=== PATIENT | female | born 1955 | race Caucasian/White ===

== ENCOUNTER 2022-04-20 10:37 | Inpatient (IN) | payer MEDICARE, OTHER ==
[~2022-04-20] VITALS: Ht 165.1 cm; Wt 93.0 kg
--- NOTE | 2022-04-20 17:06 | NUR ---
Pt arrived to ICU # 6 via [facility] from [facility] at 1627. Pt arrived intubated w/ 7.o ETT, 23 cm at teeth, ketamine gtt @ 2.5 mg/kg/hr and 40 mEq K+ infusing. Curtis cath in place, will attempt for a central line, only has x2 peripheral IVs currently. Propofol started and ketamine and K+ stopped.
[2022-04-20 17:49] LABS: PCO2 Arterial 40.3 mmHg (35-45); PO2 Arterial 130 mmHg (80-100); pH Blood Arterial 7.39 (7.35-7.45)
[2022-04-20 17:53] LABS: BASOPHILS ABSOLUTE AUTO 0.06 K/mm3 (0.00-0.23); BASOPHILS PERCENT AUTO 1 % (0-2); EOSINOPHILS PERCENT AUTO 5 % (0-6); Hematocrit 37.7 % (33.0-51.0); Hemoglobin 12.3 g/dL (11.5-16.0); IMMATURE GRAN ABSOLUTE AUTO 0.06 K/mm3 (0.00-0.10); IMMATURE GRAN PERCENT AUTO 1 % (0-1); LYMPHOCYTES ABSOLUTE AUTO 1.99 K/mm3 (0.84-5.20); LYMPHOCYTES PERCENT AUTO 20 % (21-46); MONOCYTES ABSOLUTE AUTO 0.94 K/mm3 (0.16-1.47); MONOCYTES PERCENT AUTO 9 % (4-13); Mean Corpuscular HGB 30.6 pg (26.0-34.0); Mean Corpuscular HGB Conc 32.6 g/dL (31.5-36.5); Mean Corpuscular Volume 94 fL (80-100); Mean Platelet Volume 9.5 fL (9.1-12.4); NEUTROPHILS ABSOLUTE AUTO 6.64 K/mm3 (1.96-9.15); NEUTROPHILS PERCENT AUTO 65 % (41-73); Platelet Count 410 K/mm3 (150-400); RDW Coefficient Variation 14.4 % (11.7-14.2); RDW Standard Deviation 49.8 fL (35.1-46.3); Red Blood Cell Count 4.02 M/mm3 (3.80-5.20); White Blood Cell Count 10.19 K/mm3 (4.00-11.30)
[2022-04-20 18:45] LABS: International Normalized Ratio 1.14; Prothrombin Time Results 11.9 Sec (9.7-11.5)
[2022-04-20 18:48] LABS: Free Thyroxine 1.45 ng/dL (0.70-1.60); Magnesium, Blood 1.7 mg/dL (1.6-2.4)
[2022-04-20 18:51] LABS: Albumin, Blood 1.7 g/dL (3.4-5.0); Albumin/Globulin Ratio 0.7 (0.8-1.8); Bilirubin, Total 0.5 mg/dL (0.1-1.0); Bun/Creatinine Ratio 6.3 (12.0-20.0); Calcium, Blood 9.4 mg/dL (8.5-10.1); Creatinine, Blood 0.8 mg/dL (0.40-1.00); Globulin, Blood 2.4 g/dL (2.2-4.0); Phosphorus, Blood 3.5 mg/dL (2.5-4.9); Potassium, Blood 3.5 mmol/L (3.5-5.5); Thyroid Stimulating Hormone 4.04 uIU/mL (0.360-4.800); Total Protein, Blood 4.1 g/dL (6.4-8.2); Triiodothyronine, Free 1.36 pg/mL (2.18-3.98)
[2022-04-20 20:27] LABS: Source, Urine Foley catheter
[2022-04-20 20:33] LABS: Appearance, Urine Cloudy (Clear); Bilirubin, Urine Neg (Neg); Blood, Urine 4+ (Neg); Color, Urine Yellow (P-Yellow); Glucose Qualitative, Urine Neg (Neg); Ketones, Urine Neg (Neg); Leukocyte Esterase, Urine 3+ (Neg); Nitrite, Urine Neg (Neg); Protein, Urine 2+ (Neg); Urobilinogen, Urine NORM (Normal)
[2022-04-20 20:49] LABS: Bacteria Many /hpf; Squamous Epithelial Cells Rare /hpf (Few)
[2022-04-20 20:50] LABS: Mucus Light (0-Heavy); White Blood Cells, Urine 25-50 /hpf (0-5)
--- NOTE | 2022-04-20 23:35 | NUR ---
ASSUMED CARE ASSUMED CARE AT 1900. PT INTUBATED AND SEDATED. AC/VC 18/400/5/40%. PROPOFOL GTT INFUSING. LEVOPHED GTT INFUSING TO KEEP MAP GREATER THAN 65. SEE FLOWSHEET FOR TITRATIONS. PT WITHDRAWS TO NOXIOUS STIMULI. MOVES LLE SPONTANEOUSLY. DOES NOT OPEN EYES. GRIMACES WITH ORAL CARE. UNEQUAL PUPILS. R UNRESPONSIVE. SEE SHIFT ASSESSMENT FOR FULL ASSESSMENT. NGT CLAMPED. ROSSI CHANGED AND UA SENT, PATENT AND DRAINING TO GRAVITY. CALL MADE TO DAUGHTER "ARMAND" TO GET BLOOD CONSENT AND ALLERGY INFORMATION.
--- NOTE | 2022-04-21 02:00 | NUR ---
ASSUMPTION OF CARE REPORT RECEIVED FROM ANDRY CHEN. PT REMAINS INTUBATED WITH VENT SETTINGS AC/VC 18/400/5/30%. PT RECEIVING PROPOFOL 30MCG/KG/MIN AND LEVOPHED 4MCG/MIN. NGT CLAMPED. ABDOMEN SOFT. SINUS/SINUS TACH ON MONITOR. ROSSI PATENT AND DRAINING TO GRAVITY.
[2022-04-21 04:22] LABS: BASOPHILS ABSOLUTE AUTO 0.08 K/mm3 (0.00-0.23); BASOPHILS PERCENT AUTO 1 % (0-2); EOSINOPHILS ABSOLUTE AUTO 0.95 K/mm3 (0.00-0.68); EOSINOPHILS PERCENT AUTO 7 % (0-6); Hematocrit 33.4 % (33.0-51.0); Hemoglobin 11.1 g/dL (11.5-16.0); IMMATURE GRAN PERCENT AUTO 1 % (0-1); LYMPHOCYTES ABSOLUTE AUTO 1.85 K/mm3 (0.84-5.20); LYMPHOCYTES PERCENT AUTO 13 % (21-46); MONOCYTES ABSOLUTE AUTO 1.13 K/mm3 (0.16-1.47); MONOCYTES PERCENT AUTO 8 % (4-13); Mean Corpuscular HGB 30.8 pg (26.0-34.0); Mean Corpuscular HGB Conc 33.2 g/dL (31.5-36.5); Mean Corpuscular Volume 93 fL (80-100); Mean Platelet Volume 9.3 fL (9.1-12.4); NEUTROPHILS ABSOLUTE AUTO 10.35 K/mm3 (1.96-9.15); NEUTROPHILS PERCENT AUTO 72 % (41-73); Platelet Count 484 K/mm3 (150-400); RDW Coefficient Variation 14.5 % (11.7-14.2); RDW Standard Deviation 49.3 fL (35.1-46.3); White Blood Cell Count 14.46 K/mm3 (4.00-11.30)
[2022-04-21 04:59] LABS: Albumin, Blood 2.1 g/dL (3.4-5.0); Bilirubin, Total 0.7 mg/dL (0.1-1.0); Bun/Creatinine Ratio 8.4 (12.0-20.0); Calcium, Blood 9.2 mg/dL (8.5-10.1); Creatinine, Blood 0.71 mg/dL (0.40-1.00); Globulin, Blood 2.2 g/dL (2.2-4.0); Potassium, Blood 2.9 mmol/L (3.5-5.5); Total Protein, Blood 4.3 g/dL (6.4-8.2)
--- NOTE | 2022-04-21 06:08 | NUR ---
SHIFT SUMMARY PT REMAINS INTUBATED WITH VENT SETTINGS AC/VC 18/400/5/30%. SHE IS RECEIVING LEVOPHED 4MCG/MIN AND PROPOFOL 30MCG/KG/MIN. NG CLAMPED. ROSSI PATENT AND DRAINING TO GRAVITY. HOSPITALIST NOTIFIED OF HYPOKALEMIA AND ORDER RECEIVED FOR KCL. WILL REPORT TO ONCOMING RN.
--- NOTE | 2022-04-21 08:29 | NUR ---
Assumed care of pt at 0700. Report received from Denisha CHEN. Pt sedated with propofol at 30 mcg/kg/min. RASS -4. Plan to decrease propofol. Levophed 4 mcg/min for MAP < 65
--- NOTE | 2022-04-21 18:19 | NUR ---
SUMMARY Neuro: Propofol has been off since this AM. Withdraws all extremities to pain. Cough and gag present. Does not open eyes spontaneously or move purposefully. Musc: Total care for all ADLs. Remains in bilat soft wrist restraints for prevention of self extubation as sedation wears off. Resp: Changed to spontantous mode on vent 45 mins after propofol turned off and has been on this mode since. PS 10/5, 30% FiO2. RR 22-24. TV 300-325 mL. Tolerating vent well. Cardiac: ST per monitor, averaging 120s. Levophed requirements increasing. Currently at 6 mcg/min levophed. GI: Plan to start tube feed as ordered before change of shift. No BM this shift. : Yellow urine with sediment draining from baird. Catheter secured to bed, patent and draining. Skin: No changes to inital assessment. Wound dressings changed. Psych: Plan of care discussed with palliative nurse who stated she will call family after talking to ICU doctor.
--- NOTE | 2022-04-21 20:53 | NUR ---
ASSUMPTION OF CARE/ASSESSMENT: ASSUMED CARE OF PT AT 1900. PT IS CURRENTLY INTUABTED AND SEDATION IS ON STAND-BY. PT IS RESPONDING TO PAIN STIMULI BUT NO PURPOSEFUL MOVEMENTS NOTED AT THIS TIME. PT HAS UNEQUAL PUPILS AND THE RIGHT PUPIL IS NOT REACTING TO LIGHT. VENT SETTINGS ARE ON SPONT. 10/5 AND FIO2 30%; SPO2 96< AND RR 20-24. PT HAS CLEAR UPPER LOBES AND DIM BASES BILATERALLY. PT SINUS TACH ON MONITOR WITH HR IN THE 120'S AND SBP 120'S; LEVO GTT @ 6 MCG/KG/MIN. PT HAS ROUND ABD WITH HYPOACTIVE BS; NO GRIMANCING NOTED WITH ABD PALPATED. OGT IN PLACE AND INFUSING VHP @ 20 MLS/HR WITH A GOAL RATE OF 45 MLS/HR. ROSSI IN PLACE AND DRAING TO GRAVITY; YELLOW URINE WITH ORANGE SEDIMENTS NOTED IN TUBING. PT IS VERY EDEMATOUS; FEET AND HANDS ARE COOL TO TOUCH. PPP X 4. WILL CONTINUE TO MONITOR.
[2022-04-22 03:55] LABS: BASOPHILS ABSOLUTE AUTO 0.09 K/mm3 (0.00-0.23); BASOPHILS PERCENT AUTO 1 % (0-2); EOSINOPHILS ABSOLUTE AUTO 1.21 K/mm3 (0.00-0.68); EOSINOPHILS PERCENT AUTO 8 % (0-6); Hematocrit 34.6 % (33.0-51.0); Hemoglobin 11.2 g/dL (11.5-16.0); IMMATURE GRAN ABSOLUTE AUTO 0.16 K/mm3 (0.00-0.10); IMMATURE GRAN PERCENT AUTO 1 % (0-1); LYMPHOCYTES ABSOLUTE AUTO 1.81 K/mm3 (0.84-5.20); LYMPHOCYTES PERCENT AUTO 11 % (21-46); MONOCYTES ABSOLUTE AUTO 1.26 K/mm3 (0.16-1.47); MONOCYTES PERCENT AUTO 8 % (4-13); Mean Corpuscular HGB 30.4 pg (26.0-34.0); Mean Corpuscular HGB Conc 32.4 g/dL (31.5-36.5); Mean Corpuscular Volume 94 fL (80-100); Mean Platelet Volume 9.4 fL (9.1-12.4); NEUTROPHILS ABSOLUTE AUTO 11.33 K/mm3 (1.96-9.15); NEUTROPHILS PERCENT AUTO 72 % (41-73); Platelet Count 461 K/mm3 (150-400); RDW Coefficient Variation 14.5 % (11.7-14.2); RDW Standard Deviation 50.6 fL (35.1-46.3); Red Blood Cell Count 3.68 M/mm3 (3.80-5.20); White Blood Cell Count 15.86 K/mm3 (4.00-11.30)
[2022-04-22 04:14] LABS: Albumin, Blood 1.7 g/dL (3.4-5.0); Albumin/Globulin Ratio 0.7 (0.8-1.8); Bilirubin, Total 0.6 mg/dL (0.1-1.0); Bun/Creatinine Ratio 9.5 (12.0-20.0); Calcium, Blood 9.2 mg/dL (8.5-10.1); Creatinine, Blood 0.74 mg/dL (0.40-1.00); Globulin, Blood 2.5 g/dL (2.2-4.0); Magnesium, Blood 1.7 mg/dL (1.6-2.4); Phosphorus, Blood 3.5 mg/dL (2.5-4.9); Potassium, Blood 3.1 mmol/L (3.5-5.5); Total Protein, Blood 4.2 g/dL (6.4-8.2)
[2022-04-22 04:22] LABS: Vancomycin, Trough 24.2 ug/mL (5.0-10.0)
--- NOTE | 2022-04-22 06:22 | NUR ---
SHIFT SUMMARY: NO ACUTE CHANGES THIS SHIFT. PT REMAINS INTUBATED AND OFF SEDATION; VENT SETTINGS SPONT. 12/5, FIO2 30%, AND TV 250-500. PT HAS COARSE LUNG SOUNDS THROUGHOUT AND RR 20-24. HR IN THE 100'S, ABP 120'S, LEVO GTT @ 6 MCG AND MAP 65<. CHG BATH COMPLETED THIS SHIFT. VHP INFUSING AT 35 MLS/HR WITH A GOAL RATE OF 45 MLS/HR. PT FEBRILE THROUGHOUT THE SHIFT WITH TMAX @ 100.2. WILL CONTINUE TO MONITOR UNTIL ONCOMING RN ARRIVES.
--- NOTE | 2022-04-22 08:00 | NUR ---
PT OFF SEDATION. RIGHT PUPIL MISSHAPEN-5 MM AND NONREACTIVE TO LIGHT. LEFT PUPIL 3MM AND BRISK REACTIVITY TO LIGHT. GRIMACES TO PAINFUL STIMULI, BUT NOT MOVING EXTREMITIES OR FOLLOWING COMMANDS. TEMP 100.4. ECG SHOWS ST WITH RATE 120'S. MAP TRENDING >65 ON LEVOPHED @ 6 MCG/MIN. 2+ GENERALIZED PITTING EDEMA. LUNGS DIMINISHED IN THE BASES. ETT TO VENT: PS12, PEEP 5, FIO2 30%-SATS>90% MININMAL ETT SECRETIONS. PT DOES HAVE BOTH COUGH AND GAG REFLEX. PT TOLERATING NGTF WELL @ 35 CC/HR. ROSSI TO BSD WITH SMALL AMOUNT OF YELLOW URINE WITH ORANGE SEDIMENT. RIGHT FOREARM DRESSING C/D/I. PT SKIN IS PALE AND FRAIL. WILL POSITION EVERY 2 HOURS AND PRN.
--- NOTE | 2022-04-22 10:00 | NUR ---
DR. HERNANDEZ AT BEDSIDE. UPDATE GIVEN. PT SHOOK HER HEAD "NO" WHEN DR. HERNANDEZ ASKED HER IF SHE COULD OPEN HER EYES. PT NODDED "YES" WHEN ASKED IF IN PAIN. PT IS VERY WEAK, BUT MOVING HER FEET AND HANDS-PULLS ON RESTRAINTS. WOUND CARE DONE TO LEFT FOREARM AND RIGHT WRIST WOUNDS-SEE WOUND ASSESSMENT. PT REPOSITIONED TO RIGHT SIDE.
--- NOTE | 2022-04-22 12:00 | NUR ---
PT REMAINS INTUBATED, BUT NOT SEDATED. PT DOES NOT FOLLOW COMMANDS, BUT SHE DOES GRIMACE AND PULL ON RESTRAINTS. TEMP 101.2-DR. HERNANDEZ AWARE AND TYLENOL ORDERED. MAP>65 WITH LEVOPHED @ 4 MCG/MIN. HR 120'S ST. LUNGS REMAIN DIMINISHED IN THE BASES. VENT: PS 12/5-FIO2 30%-MAINTAINS SATS>90%. PT TOLERATING NGTF @ GOAL 40 CC/HR WITHOUT DIFFICULTY.
--- NOTE | 2022-04-22 12:30 | NUR ---
DR. HERNANDEZ IN TO SEE PT. FIO2 TITRATED DOWN TO 2 LITERS. SATS>90%
--- NOTE | 2022-04-22 18:26 | NUR ---
PT REMAINS INTUBATED AND MECHANICALLY VENTILATED. PT NODS APPROPRIATELY AT TIMES, BUT DOES NOT FOLLOW COMMANDS. PT MOVES HER HANDS AND FEET, BUT NOT TO COMMAND. T MAX 101.4-NOW 99.3. ECG CONTINUES ST WITH RATE 110-120'S. 3+ PITTING EDEMA CONTINUES THROUGH OUT. LUNGS DIMINISHED TO BASES-SATS>90% ON PS 12/5, FIO2 30%. SUCTION PRODUCTIVE OF MODERATE AMOUNT OF BLOODY SPUTUM-SPECIMEN SENT. PT TOLERATING NGTF @ GOAL 40 CC/HR. INTAKE 887 VS. 375 OUT THIS SHIFT.
--- NOTE | 2022-04-22 19:00 | NUR ---
ASSUMPTION OF CARE PT REMAINS INTUBATED WITH VENT SETTINGS PS 12/5/30%. SHE IS TOLERATING WELL WITH RATE 14-20 AND TV 350S-400S. SHE IS RECEIVING LEVOPHED 5MCG/MIN. PT IS ABLE TO NOD/SHAKE HEAD TO ANSWER QUESTIONS. WHEN ASKED TO SQUEEZE HANDS AND WIGGLE TOES, SHE NODS HEAD YES BUT IS UNABLE TO MOVE THEM. UPPER AND LOWER EXTREMITIES MAKE OCCASIONAL SMALL INDEPENDENT MOVEMENTS, WITHDRAWS FROM PAINFUL STIMULI. COUGH/GAG INTACT. SHE DENIES PAIN AT THIS TIME. LUNGS ARE COARSE, DIMINISHED IN BASES. MODERATE AMOUNT OF WHITE/RED ETT SECRETIONS. VHP INFUSING VIA NGT AT GOAL RATE. ABDOMEN SOFT, NO GRIMACING WITH PALPATION. ROSSI PATENT AND DRAINING CLOUDY YELLOW URINE TO GRAVITY. SEE SHIFT ASSESSMENT.
[2022-04-23 03:37] LABS: BASOPHILS ABSOLUTE AUTO 0.06 K/mm3 (0.00-0.23); BASOPHILS PERCENT AUTO 1 % (0-2); EOSINOPHILS ABSOLUTE AUTO 0.81 K/mm3 (0.00-0.68); EOSINOPHILS PERCENT AUTO 7 % (0-6); Hematocrit 32.6 % (33.0-51.0); Hemoglobin 10.6 g/dL (11.5-16.0); IMMATURE GRAN ABSOLUTE AUTO 0.14 K/mm3 (0.00-0.10); IMMATURE GRAN PERCENT AUTO 1 % (0-1); LYMPHOCYTES ABSOLUTE AUTO 1.72 K/mm3 (0.84-5.20); LYMPHOCYTES PERCENT AUTO 14 % (21-46); MONOCYTES ABSOLUTE AUTO 1.03 K/mm3 (0.16-1.47); MONOCYTES PERCENT AUTO 8 % (4-13); Mean Corpuscular HGB 30.3 pg (26.0-34.0); Mean Corpuscular HGB Conc 32.5 g/dL (31.5-36.5); Mean Corpuscular Volume 93 fL (80-100); Mean Platelet Volume 9.2 fL (9.1-12.4); NEUTROPHILS ABSOLUTE AUTO 8.57 K/mm3 (1.96-9.15); NEUTROPHILS PERCENT AUTO 70 % (41-73); Platelet Count 402 K/mm3 (150-400); RDW Coefficient Variation 14.6 % (11.7-14.2); RDW Standard Deviation 49.9 fL (35.1-46.3); White Blood Cell Count 12.33 K/mm3 (4.00-11.30)
[2022-04-23 03:57] LABS: Bun/Creatinine Ratio 12.1 (12.0-20.0); Calcium, Blood 8.9 mg/dL (8.5-10.1); Creatinine, Blood 0.75 mg/dL (0.40-1.00); Magnesium, Blood 1.7 mg/dL (1.6-2.4); Phosphorus, Blood 3.4 mg/dL (2.5-4.9); Potassium, Blood 2.8 mmol/L (3.5-5.5)
--- NOTE | 2022-04-23 05:40 | NUR ---
SHIFT SUMMARY PT REMAINS INTUBATED. SHE WAS ON SPONTANEOUS SINCE 04/21 BUT BECAME APNEIC AROUND 0530 THIS MORNING. VENT SETTINGS NOW AC/VC 18/400/5/30% AND PT TOLERATING WELL. SHE IS RECEIVING LEVOPHED 4MCG/MIN. SHE IS ABLE TO SLOWLY OPEN EYES, NODS/SHAKES HEAD TO ANSWER QUESTION, AND VERY LIGHTLY MOVES HANDS TO COMMAND. OCCASIONALLY SMALL MOVEMENT OF FEET. TUBE FEEDING INFUSING AT GOAL RATE. BOWEL TONES ACTIVE, ABDOMEN SOFT. SMALL SMEAR BM THIS SHIFT. ROSSI LEAKING URINE AND BALLOON REINFLATED. URINE IS YELLOW WITH SEDIMENT. CONTINUING TO MONITOR AT THIS TIME.
--- NOTE | 2022-04-23 08:00 | NUR ---
PT OPENS EYES TO VOICE AND NODS APPROPRIATELY TO "YES" OR "NO" QUESTIONS. PT DENIES PAIN, BUT GRIMACES WITH ORAL CARE AND REPOSITIONING. ECG SHOWS ST WITH RATE 100-110'S. RUN OF PAT NOTED. EDEMA WORSE TODAY-HANDS 4+ ELEVATED ON PILLOWS. MAP >65 WITH LEVOPHED @ 4MCG/MIN. TEMP 100.0-FAN ON PT AND NO BLANKETS. LUNGS COARSE TO UPPER LOBES AND DIMINISHED IN THE BASES. ETT SUCTION PRODUCTIVE OF LARGE AMOUNT OF THICK, BROWN/OLD BLOODY SPUTUM. PT PLACED ON PS 12/5 WITH FIO2 30% FOR 15 MINUTES. VENT ALARMING LOW MINUTE VENTILATION AND LOW RR-RT CHANTE RETURNED VENT TO PREVIOUS SETTINGS:AC 18, TV 400, PEEP 5, FIO2 30%.PT TOLERATING NGTF @ GOAL OF 40 CC/HR. ROSSI WITH ADEQUATE AMOUNT OF YELLOW URINE WITH ORANGE SEDIMENT. PT INCONTINENT OF MODERATE AMOUNT OF BROWN, SOFT STOOL. FOAM DRESSING TO LEFT FOREARM C/D/I. RIGHT WRIST MEPITEL AND FOAM DRESSING C/D/I. WILL ATTEMPT PS TRIAL AGAIN LATER THIS DURING ROUNDS.
--- NOTE | 2022-04-23 10:00 | NUR ---
DR. HERNANDEZ AT BEDSIDE. VENT CHANGED TO VC+ PEAK PRESSURES HIGH. PT TREMULOUS AND ARTIFACT NOTED ON ECG. NEW ELECTRODES AND CABLE, BUT STILL SOME ARTIFACT CONTINUES.
--- NOTE | 2022-04-23 12:00 | NUR ---
PT GRIMACING AND APPEARS RESTLESS AND AGITATED. PT SHAKING HER HEAD "NO" WHEN RN ATTEMPTING TO DO ORAL CARE. MED WITH FENTANYL 50 MCG IVP X 1-SEE EMAR. TEMP 100.9 FAN STILL ON PT AND NO BLANKETS. MAP >65 ON LEVOPHED @ 4 MCG/MIN. MAINTAINS SATS>90% ON VC+ VANCO TROUGH RESULTS DISCUSSED WITH GENNARO IN PHARMACY AND NOON DOSE HELD. PHARMACY TO ADJUST VANCO DOSE. URINE OUTPUT 1000 CC SINCE ALBUMIN AND LASIX GIVEN.
--- NOTE | 2022-04-23 14:00 | NUR ---
PT RESTLESS AND AGITATED,NON-COMPLIANT WITH VENTILATOR-MED WITH ATIVAN 2 MG IVP X 1. TEMP 101.6-MED WITH TYLENOL 650 MG PER OGT.
--- NOTE | 2022-04-23 16:00 | NUR ---
PT EXTREMELY RESTLESS AND AGITATED. PT GRIMACING, COUGHING, AND SHAKING HER HEAD NO. RN ATTEMPTED TO CHANGE PICC LINE DRESSING AND DO WOUND CARE AND PT STARTED TREMBLING WELL. PROPOFOL DRIP INITIATED @ 20 MCG/KG/MIN. ECG CONTINUES ST WITH RATE 100'S. MAP>65 WITH LEVOPHED @ 3 MCG/MIN. TEMP 100.8. DEEP EDEMA CONTINUES TO UPPER EXTREMITIES. BOTH ARMS ARE WEEPING. NEW FOAM DRESSING TO LEFT FOREARM AND MAX ABSORB/KERLIX DRESSING TO BILATERAL HANDS. RIGHT WRIST MEPITEL AND NEW FOAM DRESSING PLACED. LUNGS COARS TO UPPER LOBES. ETT SUCTION PRODUCTIVE OF MODERATE AMOUNT OF THICK RED SPUTUM. SATS>90% ON FIO2 30%-VENT STILL ON VC+. PT TOLERATING NGTF WELL AT GOAL OF 45 CC/HR. URINE OUTPUT IMPROVED WITH ALBUMIN AND LASIX.
--- NOTE | 2022-04-23 17:00 | NUR ---
K+ 2.6-DR. HERNANDEZ NOTIFIED. KCL 40 MEQ IVPB X 1 ORDERED.
--- NOTE | 2022-04-23 18:34 | NUR ---
PT RESTING QUIETLY ON VENT WITH PROPOFOL @ 20 MCG/KG/MIN. MAP >65 ON LEVOPHED @ 3 MCG/MIN. SATS>90% ON VC+-FIO2 30% K+ REPLETION AND ALBUMIN INFUSING. LASIX HELD UNTIL K+ REPLETION COMPLETE.
--- NOTE | 2022-04-23 19:05 | NUR ---
ASSUMPTION OF CARE PT REMAINS INTUBATED WITH VENT SETTINGS AC/VC+ 18/400/5/30%. SHE IS RECEIVING PROPOFOL 20MCG/KG/MIN AND LEVOPHED 3MCG/MIN. PLAN TO STOP PROPOFOL NEAR END OF SHIFT. TUBE FEEDING INFUSING VIA NGT AT GOAL RATE. ROSSI PATENT AND DRAINING TO GRAVITY. SEE SHIFT ASSESSMENT.
[2022-04-24 04:36] LABS: BASOPHILS ABSOLUTE AUTO 0.07 K/mm3 (0.00-0.23); BASOPHILS PERCENT AUTO 1 % (0-2); EOSINOPHILS ABSOLUTE AUTO 0.76 K/mm3 (0.00-0.68); EOSINOPHILS PERCENT AUTO 7 % (0-6); Hematocrit 28.6 % (33.0-51.0); Hemoglobin 9.5 g/dL (11.5-16.0); IMMATURE GRAN ABSOLUTE AUTO 0.13 K/mm3 (0.00-0.10); IMMATURE GRAN PERCENT AUTO 1 % (0-1); LYMPHOCYTES ABSOLUTE AUTO 2.04 K/mm3 (0.84-5.20); LYMPHOCYTES PERCENT AUTO 18 % (21-46); MONOCYTES ABSOLUTE AUTO 1.08 K/mm3 (0.16-1.47); MONOCYTES PERCENT AUTO 10 % (4-13); Mean Corpuscular HGB 30.4 pg (26.0-34.0); Mean Corpuscular HGB Conc 33.2 g/dL (31.5-36.5); Mean Corpuscular Volume 92 fL (80-100); Mean Platelet Volume 9.6 fL (9.1-12.4); NEUTROPHILS ABSOLUTE AUTO 7.21 K/mm3 (1.96-9.15); NEUTROPHILS PERCENT AUTO 64 % (41-73); Platelet Count 358 K/mm3 (150-400); RDW Coefficient Variation 14.7 % (11.7-14.2); RDW Standard Deviation 49.2 fL (35.1-46.3); Red Blood Cell Count 3.12 M/mm3 (3.80-5.20); White Blood Cell Count 11.29 K/mm3 (4.00-11.30)
[2022-04-24 04:57] LABS: Bilirubin, Total 0.8 mg/dL (0.1-1.0); Bun/Creatinine Ratio 15.2 (12.0-20.0); Creatinine, Blood 0.66 mg/dL (0.40-1.00); Globulin, Blood 2.1 g/dL (2.2-4.0); Magnesium, Blood 1.6 mg/dL (1.6-2.4); Phosphorus, Blood 3.1 mg/dL (2.5-4.9); Potassium, Blood 2.7 mmol/L (3.5-5.5); Total Protein, Blood 4.1 g/dL (6.4-8.2)
--- NOTE | 2022-04-24 05:40 | NUR ---
SHIFT SUMMARY PT REMAINS INTUBATED WITH VENT SETTINGS AC/VC 18/400/5/30%. SHE IS RECEIVING LEVOPHED 4MCG/MIN AND PROPOFOL 10MCG/KG/MIN. PLAN TO STOP PROPOFOL FOR WEAN. SHE GRIMACES WITH NOXIOUS STIMULI. COUGH/GAG INTACT. SHE OCCASIONALLY CAN ANSWER QUESTIONS BY NODDING/SHAKING HEAD. SHE MAKES SMALL MOVEMENTS WITH EXTREMITIES BUT UNABLE TO SQUEEZE HANDS OR WIGGLE TOES TO COMMAND. LUNGS ARE CLEAR, DIMINISHED IN BASES. SMALL AMOUNT OF LAI ETT SECRETIONS. SINUS TO SINUS TACH ON MONITOR WITH RATE 90S-100S. LEVOPHED TITRATED BETWEEN 2-4MCG/MIN TO MAINTAIN MAP >65. STRONG PULSES. TUBE FEEDING INFUSING AT GOAL RATE VIA NGT. BOWEL TONES ACTIVE, ABDOMEN SOFT. ROSSI PATENT AND DRAINING TO GRAVITY WITH SHIFT OUTPUT OF 1350ML YELLOW URINE WITH SEDIMENT. MULTIPLE FOAM DRESSINGS ON UPPER EXTREMITIES, SEE CHART FOR PHOTOS. L ARM WEEPING CLEAR FLUID. KERLIX IN PLACE AND CHANGED TWICE THIS SHIFT. KCL INFUSING AT THIS TIME.
--- NOTE | 2022-04-24 07:45 | NUR ---
ASSUMED CARE: REPORT RECEIVED FROM TONIA Sykes RN. ASSUMED CARE OF THIS PT AT APPROX 0700. ON ASSESSMENT, THE PT IS SEDATED LIGHTLY W/ PROPOFOL & VENTILATED. SHE DOES NOT OPEN EYES SPONTANEOUSLY BUT [place]. DOES NOT FOLLOW DIRECTIONS BUT WILL INTERMITTENTLY ANSWER YES/ NO Q's BY NODDING/ SHAKING HEAD. LS COARSE, IMPROVED W/ ETT SUCTIONING. THINK PINK/ LAI SECRETIONS NOTED. VENT SETTINGS: AC/VC 18/400/5/30% W/ O2 SATS > 95% ON AVG. MONITOR SHOWS SR-ST W/ HR 90-100s, HYPOTENSIVE W/ LEVOPHED INFUSING AT 2 MCG/MIN, MAP > 65. NGT IN PLACE TO L NARE, VHP INFUSING AT GOAL RATE OF 45 ML/HR W/ NO S/SX INTOLERANCE. TEMP ROSSI PATENT/ DRAINING YELLOW URINE W/ ORANGE SEDIMENT NOTED IN TUBING. SKIN OVERALL FRAGILE, EDEMATOUS. BUE/ HANDS WEEPING W/ DRESSINGS CHANGED PRN. WILL CONTINUE TO MONITOR & UPDATE NEEDED.
--- NOTE | 2022-04-24 15:00 | NUR ---
ASSUMED CARE PT. INTUBATED AND ON LOW DOSE SEDATION WITH PROPOFOL. PT. SHAKES HEAD YES AND NOW TO QUESTIONS. PT. HAS TUBE FEEDING INFUSING AT GOAL, WITH 200ML Q4H H2O FLUSH. PT. REMAINS ON LEVOPHED GTT TITRATED FOR MAP >65. PICC LINE TO LEFT UPPER ARM. PT. VERY EDEMATOUS, BILAT UPPER ARMS WEAPING. NADN.
--- NOTE | 2022-04-24 17:58 | NUR ---
SHIFT SUMMARY PT. REMAINS SEDATED AND INTUBATED. MED FOR PAIN WITH FENTANYL ONCE DUE TO INCREASED RR AND GRIMACING WITH REPOSITIONING. PT. CONTINUES TO SHAKE HEAD YES OR NO TO QUESTIONS. LEVOPHED INFUSING. ADDITIONAL POTASSIUM REPLACEMENT INFUSING. ELECTROLYTE REPLACEMENT PROTOCOL PLACED FOR THIS AM. REPORT TO ONCPAXTON CHEN
[2022-04-25 03:26] LABS: BASOPHILS ABSOLUTE AUTO 0.04 K/mm3 (0.00-0.23); BASOPHILS PERCENT AUTO 0 % (0-2); EOSINOPHILS PERCENT AUTO 8 % (0-6); Hematocrit 28.1 % (33.0-51.0); Hemoglobin 9.4 g/dL (11.5-16.0); IMMATURE GRAN PERCENT AUTO 1 % (0-1); LYMPHOCYTES ABSOLUTE AUTO 2.21 K/mm3 (0.84-5.20); LYMPHOCYTES PERCENT AUTO 20 % (21-46); MONOCYTES ABSOLUTE AUTO 1.09 K/mm3 (0.16-1.47); MONOCYTES PERCENT AUTO 10 % (4-13); Mean Corpuscular HGB 30.3 pg (26.0-34.0); Mean Corpuscular HGB Conc 33.5 g/dL (31.5-36.5); Mean Corpuscular Volume 91 fL (80-100); Mean Platelet Volume 9.7 fL (9.1-12.4); NEUTROPHILS ABSOLUTE AUTO 6.76 K/mm3 (1.96-9.15); NEUTROPHILS PERCENT AUTO 61 % (41-73); Platelet Count 375 K/mm3 (150-400); RDW Coefficient Variation 14.8 % (11.7-14.2); RDW Standard Deviation 48.7 fL (35.1-46.3)
[2022-04-25 03:41] LABS: Bun/Creatinine Ratio 15.2 (12.0-20.0); Creatinine, Blood 0.66 mg/dL (0.40-1.00); Magnesium, Blood 1.5 mg/dL (1.6-2.4); Potassium, Blood 2.6 mmol/L (3.5-5.5)
--- NOTE | 2022-04-25 05:15 | NUR ---
SHIFT SUMMERY PT IS INTUBATED W/ETT INTACT AND PATENT TO VENT. BILATERAL BREATH SOUNDS PRESENT. PT IS ON PROPOFOL FOR SEDATION, SPONTANEOUS COUGH, SUCTIONING VIA IN-LINE PRN. LEVOPHED INFUSING, TITRATING FOR MAP >65. POTASSIUM AND MAGNESIUM CURRENTLY BEING REPLACED PER MD ORDER ACCORDING TO AM LABS. TF VIA NG RUNNING AT GOAL, PT TOLERATING WELL. SR ON THE MEDICAL HOUSEKEEPER. THERE HAVE BEEN NO ACUTE CHANGES OVERNIGHT.
--- NOTE | 2022-04-25 07:30 | NUR ---
ASSUMED CARE: PT INTUBATED AND SEDATED WITH PROPOFOL RUNNING AT 20MCG/KG/MIN. VENT SETTINGS AC 18/400/5/30. BLOOD TINGED SECRETIONS NOTED. PUPILS NOT EQUAL. RIGHT PUPIL 4, LEFT PUPIL 3. SLUGGISH TO LIGHT RESPONSE. SEDATION VACATION PERFORMED WITH GRIMACING NOTED TO NOXIOUS STIMULI. NO PURPOSEFUL MOVEMENT. NSR IN 90S ON TELE. LEVOPHED AT 2MCG/MIN. NG IN PLACE WITH TF AT GOAL. ROSSI CATHETER WITH YELLOW URINE DRAINING. NO ACUTE NEEDS AT THIS TIME.
[2022-04-25 09:02] LABS: Vancomycin, Trough 10.7 ug/mL (5.0-10.0)
--- NOTE | 2022-04-25 09:57 | NUR ---
SUPERVISOR PLASMA MADE AWARE OF UNEQUAL PUPILS. PT HAS COUGH, GAG AND RESPONDS TO NOXIOUS STIMULI. ICE PACKS APPLIED FOR FEVER. CHARGE MAKING AWARE OF NEURO STATUS DURING BED HUDDLE
--- NOTE | 2022-04-25 10:59 | NUR ---
DR MARIE CAME TO BEDSIDE AND PERFORMED EXAM ON PT. NOTED ASYMMETRICAL PUPILS. STATED THAT RIGHT IS DIFFERENT SHAPE. ON PHONE WITH FAMILY DISCUSSING THIS WELL PROGNOSIS AND UPDATE. RT AT BEDSIDE AT THIS TIME. WILL ADMINISTER TYLENOL FOR FEVER WHEN MED IS AVAILABLE.
--- NOTE | 2022-04-25 11:01 | NUR ---
PROPOFOL ON SB PER DR MARIE AT THIS TIME.
--- NOTE | 2022-04-25 12:30 | NUR ---
PT'S VENT WAS ALARMING DUE TO STACKING. WENT INTO ROOM AND NOTED PT WAS GRIMACING. CALLED PT'S NAME AND ASKED IF SHE COULD HERE THIS RN. PT NODDED. ASKED HER TO OPEN EYES AND PT DID. PT ATTEMPTED TO MOVE TOES BUT WAS UNABLE TO SQUEEZE FINGERS. EXPLAINED SITUATION TO PT. DR MARIE AWARE AND SUGGESTED TO RESTART PROPOFOL AT 10MCG/KG WHICH IS RUNNING NOW.
--- NOTE | 2022-04-25 18:32 | NUR ---
SHIFT SUMMARY: PT REMAINS INTUBATED AND SEDATED. VENT SETTINGS AC 18/400/5/30%. PROPOFOL AT 20MCG/KG AT THIS TIME DUE TO PT BECOMING AGITATED AND STACKING BREATHS. FOLLOWED SOME INSTRUCTIONS DURING SEDATION VACATION THIS AFTERNOON. SINUS TACH ON TELE AT 103. TUBE FEED PER NG. RECTAL TUBE IN PLACE FOR LIQUID STOOLS. BILATERAL WRIST RESTRAINTS. PT'S DAUGHTER CONFIRMED EYE SURGERY R/T DIFFERING PUPIL SIZES. NO FURTHER NEEDS OR CONCERNS AT THIS TIME.
[2022-04-26 04:11] LABS: Hematocrit 28.7 % (33.0-51.0); Hemoglobin 9.7 g/dL (11.5-16.0); Mean Corpuscular HGB 30.6 pg (26.0-34.0); Mean Corpuscular HGB Conc 33.8 g/dL (31.5-36.5); Mean Corpuscular Volume 91 fL (80-100); Mean Platelet Volume 9.8 fL (9.1-12.4); Platelet Count 399 K/mm3 (150-400); RDW Coefficient Variation 14.8 % (11.7-14.2); RDW Standard Deviation 49.4 fL (35.1-46.3); Red Blood Cell Count 3.17 M/mm3 (3.80-5.20); White Blood Cell Count 11.14 K/mm3 (4.00-11.30)
[2022-04-26 04:35] LABS: Bun/Creatinine Ratio 15.5 (12.0-20.0); Calcium, Blood 9.3 mg/dL (8.5-10.1); Creatinine, Blood 0.58 mg/dL (0.40-1.00); Magnesium, Blood 1.8 mg/dL (1.6-2.4)
--- NOTE | 2022-04-26 06:34 | NUR ---
SHIFT SUMMERY PT REMAINS INTUBATED VIA ETT. OXYGEN SAT >90% THROUGHOUT THE NIGHT. SR ON THE TOUR MANAGER. LEVOPHED INFUSING TO MAINTAIN MAP >65. ROSSI CATHETER AND RECTAL TUBE IN PLACE. PROPOFOL INFUSING FOR SEDATION. TF VIA NG TUBE AT GOAL. NO ACUTE CHANGES OR ACUTE DISTRESS OVERNIGHT.
--- NOTE | 2022-04-26 07:30 | NUR ---
ASSUMED CARE: PT INTUBATED AND SEDATED. VENT SETTINGS AC 18/400/5/30%. PROPOFOL GTT AT 20MCG/KG/MIN. PT OPENS EYES AND NODS TO YES/NO QUESTIONS. ATTEMPTS TO FOLLOW COMMANDS. NSR ON TELE IN 90S. LEVOPHED GTT AT 3MCG. NG WITH TF AT GOAL. RECTAL TUBE WITH SMALL AMOUNT OF BROWN OUTPUT. ROSSI IN PLACE DRAINING CLEAR, YELLOW URINE. SKIN FRAGILE AND WEEPING WITH EDEMA. NO ACUTE NEEDS AT THIS TIME.
--- NOTE | 2022-04-26 10:30 | NUR ---
DR MARIE AT BEDSIDE AND PUT PT ON SPONTANEOUS, 10/5 AND 30% FIO2. PT'S PROPOFOL OFF DIRECTED BY DOCTOR
--- NOTE | 2022-04-26 11:41 | NUR ---
DUE TO PT'S CONTINUED FEVERS, DR MARIE ORDERED CDIFF CULTURE TO DETERMINE OTHER POSSIBLE CAUSES OF INFECTION. CHIEF PHYSICAL THERAPIST AWARE. ISOLATION IN PLACE DURING RULE OUT PROCESS
[2022-04-26 15:27] LABS: C DIFFICILE DNA NEGATIVE (Negative)
--- NOTE | 2022-04-26 15:39 | NUR ---
PT'S CDIFF RESULT NEGATIVE. SPOKE WITH DR MARIE WHO WANTED BLOOD CULTURES FROM PERIPHERAL SITES. PT REMAINS ON SPONTANEOUS 01/25 WITH 30% FIO2. PROPOFOL OFF AND PT TOLERATING WELL, RESPONSIVE TO STAFF, SLEEPY, GRIMACES TO NOXIOUS STIMULI AND FOLLOWS SOME COMMANDS.
--- NOTE | 2022-04-26 17:53 | NUR ---
SHIFT SUMMARY: PT REMAINS INTUBATED, ON SPONTANEOUS AT 10/5 AND 30% FIO2. PROPOFOL ON SB. LEVOPHED ON SB. VSS AT THIS TIME. POSSIBLE EXTUBATION TOMORROW. CDIFF NEGATIVE, BLOOD CX DONE TO R/O CAUSE FOR FEVER. DR MARIE SPOKE WITH PT'S DAUGHTER AND GAVE HER UPDATE. NO FURTHER NEEDS OR CONCERNS AT THIS TIME.
--- NOTE | 2022-04-26 23:34 | NUR ---
UPDATE: ATTEMPTED TO FLUSH PICC LINE AND RESTART PROPOFOL GTT BUT PORTS ARE HARD TO FLUSH AND HAVING DIFFICULTLY DRAWING BACK BLOOD IN TWO PORTS. THIS RN SPOKE WITH GEAR REPAIR SUPERVISOR REGARDING ISSUE AND RECOMMENDATION FOR DRESSING CHANGE. THIS RN COMPLETED DRESSING CHANGE AND NOTED THAT THERE WAS WHITE, MOIST TISSUE SURROUNDING INSERTION SITE. PICC LINE WAS MEASURED AT 5 CM EXPOSED SITE. BEFORE PLACING NEW DRESSING, FLUSHING AND DRAWING BACK ON THE PORTS ATTEMPTED BUT NO IMPROVEMENT OBSERVED. NEW DRESSING PLACED. AT THIS TIME, RED PORT ON PICC LINE IS FLUSHING THE BEST AND DRAWING BACK BLOOD SLOWLY; [place]APTISTE PORT IS FLUSHING SLOWLY BUT NOT DRAWING BACK BLOOD; WHITE PORT NOT FLUSHING OR DRAWING BACK BLOOD. GEAR REPAIR SUPERVISOR AWARE. WILL CONTINUE TO MONITOR AND ASSESS STATUS AND FUNTION OF PICC LINE THROUGHOUT THE SHIFT.
[2022-04-27 04:28] LABS: Hematocrit 27.3 % (33.0-51.0); Hemoglobin 9.1 g/dL (11.5-16.0); Mean Corpuscular HGB 30.2 pg (26.0-34.0); Mean Corpuscular HGB Conc 33.3 g/dL (31.5-36.5); Mean Corpuscular Volume 91 fL (80-100); Mean Platelet Volume 10.1 fL (9.1-12.4); Platelet Count 392 K/mm3 (150-400); RDW Coefficient Variation 14.9 % (11.7-14.2); RDW Standard Deviation 49.1 fL (35.1-46.3); Red Blood Cell Count 3.01 M/mm3 (3.80-5.20); White Blood Cell Count 12.62 K/mm3 (4.00-11.30)
[2022-04-27 04:48] LABS: Bun/Creatinine Ratio 16.9 (12.0-20.0); Calcium, Blood 9.3 mg/dL (8.5-10.1); Creatinine, Blood 0.59 mg/dL (0.40-1.00)
--- NOTE | 2022-04-27 06:40 | NUR ---
SHIFT SUMMARY: PT REMAINS INTUBATED AND SEDATED THIS SHIFT. THE PT STARTED ON SPONTANEOUS AND THEN SWITCHED OVER TO AC/VC 18/400/5/30% AT 2230 D/T FATIGUE; PROPOFOL RESTARTED AT THIS TIME AND IS NOW CURRENTLY INFUSING AT 20 MCG. PT BP LABILE RANGING FROM SBP 80-110; LEVO STILL ON STANDBY. PT LUNG SOUNDS HAVE BEEN COARSE T/O AND SPO2 96<. PT HAD COPIOUS AMOUNTS OF ORAL SECERTIONS THIS SHIFT AND MODERATE SECRETIONS FROM ETT. PT RECIEVED CHG BATH THIS SHIFT AND COMPLETE LINEN CHANGE. PT HAD GOOD OUTPUT FROM ROSSI AND RECTAL TUBE. PT CONTINUES TO BE FERBILE WITH TMAX 101.3; TYLENOL PT GIVEN AND FAN ON. PT WAS ABLE TO OPEN EYES AND TRACK EARLIER WHEN SEDATION WAS ON SB. PT BUE AND BLE REMAIN EDEMATOUS BUT ARE IMPROVING FROM PREVIOUS DAYS. THIS MORNINGS POTASSIUM AT 3.0 AND REPLACEMENT STARTED; ELECTROLYE PROTOCOL ORDERED AND IN PLACE. WILL CONTINUE TO MONITOR UNTIL ONCOMING RN ARRIVES.
--- NOTE | 2022-04-27 07:11 | NUR ---
ASSUMED CARE: PT INTUBATED AND SEDATED. AC 18/400/5/30%. PROPOFOL GTT AT 20MCG/KG AT THIS TIME. LEVOPHED REMAINS OFF AND VSS. NG IN PLACE WITH TF AT GOAL. ROSSI CATH DRAINING CLEAR YELLOW URINE. RECTAL TUBE IN PLACE DRAINING BROWN LIQUID STOOL. BILATERAL WRIST RESTRAINTS. NO ACUTE NEEDS OR CONCERNS AT THIS TIME.
[2022-04-27 09:49] LABS: Source, Urine Foley catheter
[2022-04-27 10:01] LABS: Appearance, Urine Clear (Clear); Bilirubin, Urine Neg (Neg); Blood, Urine 1+ (Neg); Color, Urine Yellow (P-Yellow); Glucose Qualitative, Urine Neg (Neg); Ketones, Urine Neg (Neg); Leukocyte Esterase, Urine 2+ (Neg); Nitrite, Urine Neg (Neg); Protein, Urine Neg (Neg); Urobilinogen, Urine NORM (Normal)
[2022-04-27 10:10] LABS: Bacteria Few /hpf; Red Blood Cells, Urine 0-2 /hpf (0-2); Squamous Epithelial Cells Few /hpf (Few)
[2022-04-27 10:15] LABS: Vancomycin, Trough 9.5 ug/mL (5.0-10.0)
--- NOTE | 2022-04-27 17:56 | NUR ---
"Spiritual Care | Nurse/Family Request A family member had contacted the ICU and requested a trailer body assembler visit the Pt. Pt. is intubated but responds with nods when I call her name. After introductions, Pt. affirms non verbally that she is a woman of demi, and that she would like to have prayer. Prayed with Pt. Will continue to monitor Pt. for spiritual support."
--- NOTE | 2022-04-27 17:59 | NUR ---
SHIFT SUMMARY: PT HAS BEEN OFF OF SEDATION T/O SHIFT TODAY. OPENS EYES WHEN SPOKEN TO, SHAKES HEAD AND NODS TO YES/NO QUESTIONS. INTUBATED WITH SETTINGS AC 18/400/5/30%. NG IN PLACE FOR TF, AT GOAL. ROSSI CATH DRAINING CLEAR YELLOW URINE, DIURESING. RECTAL TUBE IN PLACE DRAINING SMALL AMOUNT OF BROWN STOOL. DAUGHTER CALLED TO RECIEVE UPDATE AND PHONE CALL WAS HELD TO PATIENT'S EAR SO THAT PT COULD HEAR DAUGHTER TOO. CALLED [employer] FOR PRAYER PER DAUGHTER'S REQUEST. NO FURTHER NEEDS OR CONCERNS AT THIS TIME.
--- NOTE | 2022-04-27 21:58 | NUR ---
ASSUMPTION OF CARE/ASSESSMENT: ASSUMED CARE OF PT AT 1900. PT IS INTUBATED AND OFF SEDATION; VENT SETTINGS AC/VC 18/400/5/30%. PT IS RESPONSIVE TO VERBAL STIMULI AND OPENING EYES AND TRACKING; PT IS NOT FOLLOWING COMMANDS AT THIS TIME. PT IS MOVING ALL EXTREMITIES WEAKLY. PT LUNG SOUNDS ARE CLEAR THROUGHOUT WITH SPO2 94<. PT HR IN THE 100'S AND SBP 90'S. PT HAS HYPOACTIVE BOWEL SOUNDS IN ALL QUADRANTS. PT HAS VHP INFUSING IN NGT AT GOAL RATE OF 40 MLS/HR. PT RECTAL TUBE IN PLACE AND DRAINING TO GRAVITY. PT HAS TEMP ROSSI IN PLACE AND DRAINING TO GRAVITY. PT HAS BEEN FEBRILE WITH TMAX OF 101.4; PT GIVEN PT TYLENOL AND ICE PACKS APPLIED. WILL CONTINUE TO MONITOR
--- NOTE | 2022-04-28 06:42 | NUR ---
SHIFT SUMMARY: NO ACUTE CHANGES THROUGHOUT THE SHIFT. VSS; PT HAD SPONTANEOUS BREATHING TRAIL AND FAILED WEAN. PT ON AC/VC 14/400/5/30%. PT HAVING FREQUENT COUGHING FITS AND PRODUCING MODERATE AMOUNTS OF SECRETIONS FROM ETT THAT ARE BLOOD-TINGED. PT IS CONSISTENTLY FOLLOWING COMMANDS AND ANSWERING SIMPLE QUESTIONS. PT CONTINUES TO DENY PAIN AT THIS TIME. WILL CONTINUE TO MONITOR UNTIL ONCOMING RN ARRIVES.
--- NOTE | 2022-04-28 07:15 | NUR ---
Assumed care of pt at 0700. Report received from Tari CHEN. Pt does not have sedation. She is laying in bed, awake and alert. Grocery Shopper on command, weak, but equal bilateral. Moves feet on command. Nods head in response to hearing plan of care, as if to understand. Appropriately nods head yes/no to answer questions. Vent settings ACVC 14/400/5/30%. SpO2 90% or greater. Has episodes of coughing and agitation, but responds well to verbal redirection. TF per orders. Rectal tube for lose stool. Temp baird, febrile. Tylenol recently given.
--- NOTE | 2022-04-28 09:30 | NUR ---
Dr Koch in room, placed vent on PS. Pt tolerating well so far.
[2022-04-28 11:07] LABS: Bun/Creatinine Ratio 17.3 (12.0-20.0); Calcium, Blood 9.2 mg/dL (8.5-10.1); Creatinine, Blood 0.58 mg/dL (0.40-1.00); Potassium, Blood 2.5 mmol/L (3.5-5.5)
[2022-04-28 11:17] LABS: Vancomycin, Trough 15.1 ug/mL (5.0-10.0)
--- NOTE | 2022-04-28 14:32 | NUR ---
Extubated at 1338. Restraints removed at this time. NG tube remains in place for enteral nutrition until pt can safely swallow. Tube feeds paused for hours prior to extubation. Despite this, patient vomited during deep suction performed prior to removal of ETT. Currently, pt is on 2 LPM NC, with SpO2 96%. RR 20, even and unlabored. Cough is getting stronger.
--- NOTE | 2022-04-28 17:22 | NUR ---
SUMMARY Neuro/Musc/Psych: Pt A&O x 1. Answers questions, follows commands, verbalizes needs. Hoarse, whispery voice. Does not seem to reorient or be receptive to education. Repetitively asks "what am I doing here?" or states "Get me out of here" despite reorienting patient, discussing hospitalization at [place] and transfer to [place]. Pt is cantankerous. Protests routine care such as repositioning and oral care. This RN placed call to pt's daughter, Stacy, to update and place in room phone next to pt's ear so Stacy could talk to pt. Pt is profoundly weak, but able to move all extremities on command, equal strength BUE and BLE. Febrile, seems to respond well to Tylenol. Resp: Lungs clear t/o. No expectoration since pt removed from vent. Cough is dry and nonproductive, however increasing in strength. SpO2 97% with 2 LPM NC. Respirations are even and unlabored. Card: ST per monitor, rate mid 120s. Increase in HR noted with pt becoming febrile. BP stable. Has remained off levophed for entire shift. GI: Pt has episode of emesis with deep oral suction preceeding extubation. TF had been held for hours prior to extubation and for addtl two hours after extubation. Restarted at rate of 20 mL/hr per v/o Dr Koch. Licensing Representative, Dewey, notified of provider orders. Rectal tube in place. 400 mL output since previous documentation, which was 1/4. Bag changed and new output noted in bag. Adb is firm and mildly distended. No pain with palpation. 0 mL residual measured this AM. : Catheter secured to bed, patent and draining. Excellent urine output this shift. Catheter care performed with designated cleansing cloths. Skin: CHG bath performed today. All dressings changed. No new disruptions to skin integrity noted.
--- NOTE | 2022-04-28 19:29 | NUR ---
ASSUMED CARE PATIENT IS LYING IN BED WITH EYES CLOSED, RESTING QUIETLY. NC IN PLACE @ 2LPM WITH SPO2 GREATER THAN 90%. NS TKO INF TO JODIE PICC. TEMP ROSSI PATENT AND DRAINING TO GRAVITY. RECTAL TUBE PATENT AND DRAINING. VHP INF VIA OGT @ GR 20ML/HR WITH 30ML Q4H WATER FLUSHES. PATIENT ANSWERS TO HER NAME AND ASKS WHERE HER DAUGHTER IS. DOES NOT KNOW YEAR OR PLACE. OVERALL VERY WEAK. PENDING POTASSIUM RESULT S/P 60MEQ KCL INF. REPORT RECEIVED FROM GUSTAVO MOTA.
[2022-04-29 03:53] LABS: BASOPHILS ABSOLUTE AUTO 0.07 K/mm3 (0.00-0.23); BASOPHILS PERCENT AUTO 0 % (0-2); EOSINOPHILS ABSOLUTE AUTO 1.53 K/mm3 (0.00-0.68); EOSINOPHILS PERCENT AUTO 8 % (0-6); Hematocrit 28.6 % (33.0-51.0); Hemoglobin 9.6 g/dL (11.5-16.0); IMMATURE GRAN ABSOLUTE AUTO 0.28 K/mm3 (0.00-0.10); IMMATURE GRAN PERCENT AUTO 2 % (0-1); LYMPHOCYTES ABSOLUTE AUTO 2.25 K/mm3 (0.84-5.20); LYMPHOCYTES PERCENT AUTO 12 % (21-46); MONOCYTES PERCENT AUTO 6 % (4-13); Mean Corpuscular HGB 30.3 pg (26.0-34.0); Mean Corpuscular HGB Conc 33.6 g/dL (31.5-36.5); Mean Corpuscular Volume 90 fL (80-100); Mean Platelet Volume 10.2 fL (9.1-12.4); NEUTROPHILS ABSOLUTE AUTO 13.47 K/mm3 (1.96-9.15); NEUTROPHILS PERCENT AUTO 72 % (41-73); Platelet Count 529 K/mm3 (150-400); RDW Coefficient Variation 15.5 % (11.7-14.2); RDW Standard Deviation 49.2 fL (35.1-46.3); Red Blood Cell Count 3.17 M/mm3 (3.80-5.20)
[2022-04-29 04:12] LABS: Albumin/Globulin Ratio 1.4 (0.8-1.8); Bun/Creatinine Ratio 18.9 (12.0-20.0); Calcium, Blood 9.2 mg/dL (8.5-10.1); Creatinine, Blood 0.48 mg/dL (0.40-1.00); Globulin, Blood 2.2 g/dL (2.2-4.0); Potassium, Blood 3.2 mmol/L (3.5-5.5); Total Protein, Blood 5.2 g/dL (6.4-8.2)
--- NOTE | 2022-04-29 06:22 | NUR ---
SHIFT SUMMARY PATIENT SLEPT MINIMALLY THROUGHOUT SHIFT. ONE EPISODE OF PAIN AFTER PICC LINE DRESSING PAIN-MEDICATED WITH FENTANYL 25 MCG IV. LATER IN THE MORNING PATIENT HAD ONE EPISODE OF NAUSEA AND VOMITING-TF TURNED OFF AND ZOFRAN 4MG IV GIVEN. PATIENT REPORTED IMPROVEMENT OF PAIN AND NAUSEA. NO OTHER EPISODES OF VOMITING. TMAX FOR SHIFT WAS 100.7-MEDICATED WITH ONE DOSE OF TYLENOL 650MG PT. FREQUENT REORIENTATION REQUIRED. COOPERATIVE WITH CARE. NO OTHER CHANGES DURING SHIFT.
--- NOTE | 2022-04-29 10:35 | NUR ---
Assumed care of pt at 0700. Report received from Sherly Bedolla RN. Pt alert. Oriented to self. Answers questions, follows commands about 50% of time, verbalizes needs. Lifted to recliner for optimal positioning for ST eval. Pt was easily distracted and minimally interested in participating, despite stated desire for PO fluids. ST permitted pt to take meds crushed in applesauce as well as sips of water by spoon. Also stated that soda may be given, as pt was persistently requesting this, provided that oral care is performed before hand. Dr Grossman in to see patient. Discussed that pt vomited overnight. Provider stated to restart tube feeds. Discussed appearance of arm that has PICC line as skin seems to not be tolerating dressing. Also arm is red and more edematous that RUE. Plan for DVT study.
[2022-04-29 12:13] LABS: Vancomycin, Trough 13.9 ug/mL (5.0-10.0)
--- NOTE | 2022-04-29 14:45 | NUR ---
Pt remains in recliner. Tolerating this well. XR obtained of foot and ultrasound obtained of LUE.
--- NOTE | 2022-04-29 17:24 | NUR ---
SUMMARY Neuro: Alert. Oriented to self. Does not know current location. Follows commands. Generally pleasant and cooperative with care. Musc/ADLs: Reports pain to all extremities with movement. Pt mentioned broken foot. On examination, R foot is more edematous than L. Xray obtained. Discussed previous level of mobility with pt's daughter, Stacy. She states that pt was bedbound March 2021 until October 2021. Became really sick Decemeber 2020 due to UTI/sepsis and was hospitalized at [place]. Was not able to stand until October 2021. Started mobilizing with walker and two person assist, then broke her foot on 02/19/22 and has been bedbound since. Currently, pt is not able to perform any ADLS, including PO intake, oral care, washing face, or combing hair. OT ordered. Pt lifted to recliner today and sat up in recliner for about 7 hours. Tolerated well. CHG bath given and linens changed. Reposition Q2H to maintain skin integrity. Oral Q4H with suction swabs and preceeding PO intake. Resp: SpO2 90% or greater with 2 LPM NC. Lungs clear, diminished. Dry, nonproductive cough. Cardiac: ST per monitor. BP stable low/normal. L side more edematous than R. GI: NG tube remains in place. No changes to tube feed regimen. On transferring pt back to bed from recliner, noticed that rectal tube had been disloged. Scant drainage this shift, therefore tube was not replaced. ST saw patient and prescribed meds crushed in apple sauce and sips of water by teaspoon. Pt is tolerating this well w/o signs of aspiration. : 1L clear yellow urine output from baird. Skin: Unchanged from intial assessment. Psych: [place] mentation. Patient became agitated because she thought she saw her daughter, Stacy, at the nurses station. Pt became paranoid and distrusting, calling out for help and felt staff was witholding her daughter. Moved pt's recliner towards outside window, played music channel on TV, and closed door and pt responded very well to this. She has been happy all afternoon. She is still quite confused.
--- NOTE | 2022-04-29 19:22 | NUR ---
ASSUMED CARE PATIENT IS LYING IN BED WITH EYES CLOSED. NGT IN PLACE WITH VHP INF @ GR 20ML/HR W/ 30ML Q4H WATER FLUSHES. ROSSI PATENT AND DRAINING DARK YELLOW CLEAR URINE TO GRAVITY. NO RECTAL TUBE PRESENT. NO FAMILY OR VISITORS AT BEDSIDE. PATIENT IS TACHYCARDIC WITH RATE 120'S, BUT OTHER VSS. REPORT RECEIVED FROM GUSTAVO MOTA.
[2022-04-30 05:12] LABS: Hematocrit 28.1 % (33.0-51.0); Hemoglobin 9.4 g/dL (11.5-16.0); Mean Corpuscular HGB 30.6 pg (26.0-34.0); Mean Corpuscular HGB Conc 33.5 g/dL (31.5-36.5); Mean Corpuscular Volume 92 fL (80-100); Mean Platelet Volume 9.8 fL (9.1-12.4); Platelet Count 573 K/mm3 (150-400); RDW Coefficient Variation 15.9 % (11.7-14.2); RDW Standard Deviation 51.2 fL (35.1-46.3); Red Blood Cell Count 3.07 M/mm3 (3.80-5.20); White Blood Cell Count 16.32 K/mm3 (4.00-11.30)
--- NOTE | 2022-04-30 05:23 | NUR ---
SHIFT SUMMARY PATIENT SLEPT OFF AND ON THROUGHOUT SHIFT, MORE THAN THE PREVIOUS NIGHT. REMAINS PLEASANTLY CONFUSED. KNOWS YEAR AT TIMES AND SELF, ASKS FOR DAUGHTER ARMAND FREQUENTLY. ONE EPISODE OF NAUSEA W/O VOMITING. DENIED PAIN T/O SHIFT. FEBRILE W/ TMAX 101.0F-MEDICATED WITH TYLENOL X 1. TEMP RETURNED TO 98.6F. 900ML OUT OF ROSSI. NO BM THIS SHIFT. PATIENT TOLERATED SPOONFULS OF WATER AND SARI MIST. VSS. NO OTHER CHANGES DURING SHIFT.
[2022-04-30 05:56] LABS: Magnesium, Blood 1.6 mg/dL (1.6-2.4)
[2022-04-30 06:01] LABS: Calcium, Blood 9.3 mg/dL (8.5-10.1); Creatinine, Blood 0.53 mg/dL (0.40-1.00); Phosphorus, Blood 4.1 mg/dL (2.5-4.9)
--- NOTE | 2022-04-30 10:50 | NUR ---
ASSUMED CARE REPORT FROM RONALD CHEN. PT SLEPT MOST OF AM. WAKES c VERBAL STIMULI. GARBLED SPEECH. DIFFICULT TO UNDERSTAND. A&OX1. FOLLOWS SIMPLE DIRECTIONS. GENERALIZED PAIN c ALL CARE PROVIDED. LUNGS DIM. MOIST COUGH. ABLE TO MANAGE SECRETIONS. 4L VIA NC. ST ON MONITOR, RATE 110-120'S. BP STABLE. ANASCARCA, PITTING, WEEPING AND REDNESS. SKIN FRAGILE. NGT TO LEFT NARE, TUBE FEEDS AT GOAL. ABD OBESE, SOFT, GENERALIZED TENDERNESS. BT X 4. ROSSI PATENT, DRAINING MARY URINE TO GRAVITY. PICC TO LUE, DRESSING CHANGED. CHG BATH COMPLETE AND UP TO CHAIR. WILL CONTINUE TO MONITOR.
--- NOTE | 2022-04-30 17:39 | NUR ---
SHIFT SUMMARY PT STATUS CHANGED TO PCU THIS SHIFT. SOMULENT MOST OF SHIFT. WAKES c VERBAL STIMULI. ORIENTED TO SELF ONLY. FOLLOWS SIMPLE COMMANDS. GENERALIZED WEAKNESS BUT ABLE TO MOVE ALL EXT. SLOW GARBLED SPEECH. LUNGS DIM THROUGHOUT. MOIST COUGH. 2L VIA NC. ST ON MONITOR. RATE INCREASING TO 130 THIS SHIFT, FLUID CHALLENGE AT THIS TIME. BP STABLE. ORAL CARE PERFORMED MULTIPLE TIMES THIS SHIFT. CASTS ON ROOF OF MOUTH. REMOVED. TUBE FEEDS CONTINUE AT GOAL, NO VOMITING, ONE EPISODE OF NAUSEA, MEDICATED c ZOFRAN c GOOD RELIEF. SKIN UNCHANGED. ROSSI PATENT, DRAINED 1000 ML CLEAR YELLOW URINE TO GRAVITY. UP TO CHAIR FOR MOST OF SHIFT. WILL CONTINUE TO MONITOR UNTIL REPORT TO ONCOMING NURSE.
--- NOTE | 2022-04-30 19:00 | NUR ---
ASSUMED CARE OF PT @1900. PT IS ALERT IN BED, CONFUSED AND ORIENTED ONLY TO SELF. DIFFICULT TO UNDERSTAND SHE IS MUMBLING AND WHISPERING. 2L O2 VIA NC. BP HAS BEEN TRENDING DOWN BUT IS CURRENTLY STABLE. HR 100-110'S. PICC LINE JODIE PATENT. WEEPING UNDER AND AROUND DRESSING. TF @20MLS/HR GR VIA NG TUBE. ROSSI CATH PATENT AND DRAINING TO GRAVITY.
[2022-05-01 04:27] LABS: BASOPHILS ABSOLUTE AUTO 0.07 K/mm3 (0.00-0.23); BASOPHILS PERCENT AUTO 1 % (0-2); EOSINOPHILS PERCENT AUTO 12 % (0-6); Hematocrit 25.9 % (33.0-51.0); Hemoglobin 8.3 g/dL (11.5-16.0); IMMATURE GRAN ABSOLUTE AUTO 0.11 K/mm3 (0.00-0.10); IMMATURE GRAN PERCENT AUTO 1 % (0-1); LYMPHOCYTES ABSOLUTE AUTO 1.81 K/mm3 (0.84-5.20); LYMPHOCYTES PERCENT AUTO 15 % (21-46); MONOCYTES ABSOLUTE AUTO 1.02 K/mm3 (0.16-1.47); MONOCYTES PERCENT AUTO 9 % (4-13); Mean Corpuscular HGB 29.7 pg (26.0-34.0); Mean Corpuscular Volume 93 fL (80-100); Mean Platelet Volume 9.8 fL (9.1-12.4); NEUTROPHILS ABSOLUTE AUTO 7.34 K/mm3 (1.96-9.15); NEUTROPHILS PERCENT AUTO 63 % (41-73); Platelet Count 549 K/mm3 (150-400); RDW Coefficient Variation 16.1 % (11.7-14.2); Red Blood Cell Count 2.79 M/mm3 (3.80-5.20); White Blood Cell Count 11.75 K/mm3 (4.00-11.30)
[2022-05-01 06:07] LABS: Albumin, Blood 3.3 g/dL (3.4-5.0); Albumin/Globulin Ratio 1.7 (0.8-1.8); Bun/Creatinine Ratio 9.2 (12.0-20.0); Creatinine, Blood 0.55 mg/dL (0.40-1.00); Globulin, Blood 1.9 g/dL (2.2-4.0); Potassium, Blood 2.9 mmol/L (3.5-5.5); Total Protein, Blood 5.2 g/dL (6.4-8.2)
--- NOTE | 2022-05-01 06:16 | NUR ---
SUMMARY NEURO/PSYCH/MOBILITY: PT REMAINS DIFFICULT TO UNDERSTAND AND CONFUSED. FORMING WORDS THIS AM BUT STILL MUMBLING INCOHERENTLY. PT HAS BEEN SAYING HER DAUGHTERS NAME "ENA" OVER AND OVER. PT COOPERATIVE W/CARE AND ABLE TO NOD OR SHAKE HEAD TO QUESTIONS. ABLE TO MAKE SMALL MOVEMENTS WITH BLE BUT VERY WEAKLY. PT DENIES PAIN. TMAX 100.2, PRN TYLENOL GIVEN. RESP: ASSESSMENT REMAINS UNCHANGED. PT TOLERATING 2L O2 VIA NC. SPO2 >92%, RR <20. OCCASIONAL DRY COUGH. CARIDAC: PT BP AND MAP TRENDING DOWN BEGINNING OF SHIFT W/ELEVATION IN HR. ALBUMIN ADMINISTERED PER ORDER. SBP INCREASED TO 100-110 AND WAS STABLE, MAP >65. HR <115. GI: PT WAS NAUSEOUS BEGINNING OF SHIFT. PRN ZOFRAN GIVEN. TF VITAL HP VIA NG @20MLS/HR GR. PT HAD ONE SMALL LOOSE BOWEL MOVEMENT AND ONE LARGE LOOSE BM THIS SHIFT. : ROSSI CATH IN PLACE AND DRAINING TO GRAVITY. SKIN: ASSESSMENT REMAINS UNCHANGED. IV ACCESS: PICC LINE DRESSING CHANGED DUE TO WEEPING EDEMA AND REDDNESS. PRIOR TO BANDAGE CHANGE LINE WAS NOTED AT 7CM EXPOSED, NOT 3CM. CHARGE NURSE NOTIFIED. WILL REPORT TO MERARIPAJAVAD AND PICC NURSE.
--- NOTE | 2022-05-01 13:21 | NUR ---
DISCUSSED ORDER WITH CT WHO STATES THEY ARE AWARE AND WILL COLLECT PT FOR IMAGE WHEN ABLE
--- NOTE | 2022-05-01 14:21 | NUR ---
SPEECH THERAPY CAME TO EVALUATE AND PT BEGAN COUGHING WITH SMALL AMOUNTS OF THIN LIQUIDS. EVALUATION STOPPED. PT TAKEN TO CT NOW BY TRANSPORTER
--- NOTE | 2022-05-01 19:14 | NUR ---
SHIFT SUMMARY: PT UP IN CHAIR WITH LIFT FOR PART OF SHIFT. NG STILL IN PLACE DUE TO FAILED SWALLOW EVAL. PT STILL SOMNOLENT WITH OCCASIONAL WORDS. PERKED UP WHEN DAUGHTER WAS SPEAKING TO HER ON PHONE BUT WAS UNABLE TO HOLD THE PHONE HERSELF. SINUS TACH ON TELE IN 120S ON 4L O2 VIA NC. NO FURTHER NEEDS OR CONCERNS AT THIS TIME.
--- NOTE | 2022-05-01 19:15 | NUR ---
ASSUMED CARE OF PT @1900 FROM RONY CHEN. PT IN BEDSIDE RECLINER AND BEING TRANSFERRED BACK TO BED AT SHIFT CHANGE. PT IS SPEAKING IN A MUMBLED WHISPER W/OCCASIONAL UNDERSTANDABLE WORDS. SEEMS CONFUSED AND POINTING AT THE WALL. 2L O2 VIA NC. CONTINUOUS CARDIAC MONITORING. HR TACHY IN THE 120'S. NG TUBE INFUSING TF @20MLS/HR GR. ROSSI CATH PATENT AND DRAINING TO GRAVITY.
[2022-05-02 05:12] LABS: BASOPHILS ABSOLUTE AUTO 0.08 K/mm3 (0.00-0.23); BASOPHILS PERCENT AUTO 1 % (0-2); EOSINOPHILS ABSOLUTE AUTO 1.67 K/mm3 (0.00-0.68); EOSINOPHILS PERCENT AUTO 13 % (0-6); Hematocrit 29.3 % (33.0-51.0); Hemoglobin 9.4 g/dL (11.5-16.0); IMMATURE GRAN ABSOLUTE AUTO 0.12 K/mm3 (0.00-0.10); IMMATURE GRAN PERCENT AUTO 1 % (0-1); LYMPHOCYTES ABSOLUTE AUTO 2.12 K/mm3 (0.84-5.20); LYMPHOCYTES PERCENT AUTO 16 % (21-46); MONOCYTES ABSOLUTE AUTO 1.29 K/mm3 (0.16-1.47); MONOCYTES PERCENT AUTO 10 % (4-13); Mean Corpuscular HGB 30.1 pg (26.0-34.0); Mean Corpuscular HGB Conc 32.1 g/dL (31.5-36.5); Mean Corpuscular Volume 94 fL (80-100); Mean Platelet Volume 10.1 fL (9.1-12.4); NEUTROPHILS ABSOLUTE AUTO 7.77 K/mm3 (1.96-9.15); NEUTROPHILS PERCENT AUTO 60 % (41-73); Platelet Count 716 K/mm3 (150-400); RDW Coefficient Variation 16.8 % (11.7-14.2); RDW Standard Deviation 55.3 fL (35.1-46.3); Red Blood Cell Count 3.12 M/mm3 (3.80-5.20); White Blood Cell Count 13.05 K/mm3 (4.00-11.30)
--- NOTE | 2022-05-02 06:15 | NUR ---
SUMMARY NEURO/PSYCH/MOBILITY: PT REMAINS DIFFICULT TO UNDERSTAND BUT IS FORMING MORE WORDS AND IS MUMBLING INCOHERENTLY LESS. PT COOPERATIVE W/CARE AND SAYING "THANK YOU." ABLE TO NOD OR SHAKE HEAD IN RESPONSE TO QUESTIONS. PT WEAKLY MOVING UPPER EXTREMETIES AND MOVING L FOOT. PT IS VERY TENSE DURING REPOSITIONING BUT DENIES PAIN. MAX ASSIST FOR ALL ADL'S. TMAX 100.1, PRN TYLENO GIVEN. RESP: PT IS COUGHING AND GAGGING MORE FREQUENTLY. SUCTIONING SCANT AMOUNTS OF WHITE SPUTUM FROM MOUTH. TOLERATING 2L O2 VIA NC. SPO2 >92%, RR <20. CARDIAC: PT BP AND MAP TRENDING DOWN THIS AM. PT REMAINS TACHYCARDIC IN THE 120'S. WEEPING EDEMA LEFT ARM. 2+ EDEMA BLE. GI: PT MEDICATED ONCE W/PRN ZOFRAN DT NAUSEA. TF VITAL HP VIA NG @20MLS/HR GR. PT HAD ONE LARGE BM THIS SHIFT. : ROSSI CATH PATENT AND DRAINING TO GRAVITY. SKIN: MEPILEX ON RFA CHANGED. HEEL PROTECTORS IN PLACE. IV ACCESS: PICC LINE PATENT. RADIOGRAPH DONE TO CONFIRM PLACEMENT.
--- NOTE | 2022-05-02 07:37 | NUR ---
ASSUMED CARE: PT RESTING QUIETLY IN BED AT THIS TIME. 4L O2 VIA NC. SINUS TACH IN 120S AT THIS TIME. NG TUBE IN PLACE WITH TF INFUSING. ROSSI DRAINING CLEAR YELLOW URINE. NO ACUTE NEEDS AT THIS TIME.
[2022-05-02 07:40] LABS: Magnesium, Blood 1.7 mg/dL (1.6-2.4)
[2022-05-02 08:15] LABS: Calcium, Blood 10.4 mg/dL (8.5-10.1); Creatinine, Blood 0.63 mg/dL (0.40-1.00)
--- NOTE | 2022-05-02 10:55 | NUR ---
CHG DRESSING IN PLACE FOR PICC LINE BUT APPEARS SATURATED. REMOVE DRESSING TO CHANGE OUT AND NOTICED YELLOW CRUSTY SUBSTANCE ATTACHED TO SKIN, THAT WAS NOT PRESENT ON PRIOR DAY'S ASSESSMENTS. INSERTION SITE WITH WHITE/YELLOW TISSUE AND RED AND PUFFY, MORESO THAN PRIOR DAY'S ASSESSMENT. SURROUNDING AREA ALSO APPEARED SWOLLEN AND RED AND OLD BLISTERED SITES THAT NOT HAD WHITE TISSUE IN THE CENTER. CALL TO PICC NURSE TO EXAMINE AND NURSE ADVISES REMOVAL OF PICC DOES JAMMER OPERATOR. CALL TO DR CUEVA WHO STATES TO REMOVE AND CULTURE WELL. PICC NURSES AWARE
--- NOTE | 2022-05-02 11:43 | NUR ---
Spiritual Care Visit. Pt. is awake in bed and though it was hard for her to communicate clearly displayed evidnce that she welcomed my visit. This hr internship had seen the Pt. the previous week. Pt. is pleasant, but this hr internship wanted to not stay long because of the Pts. discomfort communicating. Prayed with Pt. Pt. verbalized gratitude for the spiritual care visit.
--- NOTE | 2022-05-02 17:54 | NUR ---
SHIFT SUMMARY: PT WAS UP TO CHAIR FOR PART OF SHIFT. ON WAY BACK TO BED NG SLIPPED OUT OF PLACE. REPLACED TO CORRECT LOCATION AND TF STOPPED FOR XRAY TO CONFIRM PLACEMENT. PT TACHYCARDIC IN THE 120S. CALL TO DR CUEVA WHO PLACED ORDERS FOR FLUID BOLUS AND HOLD PM DOSE OF DIURETICS. NO FURTHER NEEDS AT THIS TIME.
--- NOTE | 2022-05-02 19:30 | NUR ---
ASSUMED CARE OF PT, BEDSIDE REPORT RECEIVED. PT IS RESTING QUIETLY RECLINING IN BED, SATS ARE NOTED MAINTAINING WITH OXYGEN VIA NASAL CANNULA AT 2 L/MIN, NO VISIBLE INCREASED WORK OF BREATHING AT REST, RATE 20/MIN AT THIS TIME. STRONG AND MARKEDLY SENSITIVE GAG REFLEX IS NOTED WITH ORAL CARE HOWEVER THERE ARE LARGE CASTS PRESENT TO MOST OF ORAL MUCOSA AT THIS TIME, THOROUGH ORAL CARE IS PROVIDED WELL EXPLANATION TO PT REGARDING IMPORTANCE OF INTERVENTION AND RISKS OF NOT PROVIDING ORAL CARE. SINUS TACH NOTED ON MONITOR, CURRENT RATE LOW 120S, PRESSURES IMPROVING POST 500 ML BOLUS PER OFFGOING RN, WILL MONITOR. CXR FOR NG TUBE VERIFICATION IS CURRENTLY PENDING PT PULLED ON TUBING DURING TRANSFER BACK TO BED, WILL RESUME TUBE FEEDS AT 40 ML/HR WHEN XR IS VERIFIED, PLAN TO ADVANCE TO GOAL PER ORDERS. WILL PLAN TO CONTINUE Q2 HOUR TURNS FOR SKIN PROTECTION.
--- NOTE | 2022-05-03 05:25 | NUR ---
TX FROM ICU-06 AT 0350. SOMNOLENT, ORIENTED TO SELF ONLY. MUMBLES INCOHERENTLY WITH OCCASIONAL CLEAR WORDS/SHORT SENTENCES. TELE ST IN THE 120'S. SPO2 >92% ON 2L VIA NC, WEAK NONPRODUCTIVE COUGH NOTED. PG TO LILIBETH. NG IN PLACE, TF INCREASED TO 45 ML/HR WITH A GOAL RATE OF 65 ML/HR AND 30ML FLUSH Q4. ROSSI PATENT AND DRAINING CLEAR DARK YELLOW URINE. WEEPING EDEMA TO LUE FROM PREVIOUS PICC INFILTRATION. 2+ EDEMA TO BLE. VSS, BED IN LOWEST POSITION, ALARM ON, CALL LIGHT IN REACH. WILL CONTINUE TO MONITOR AND REPORT TO ONCOMING RN.
[2022-05-03 08:52] LABS: Hematocrit 27.8 % (33.0-51.0); Hemoglobin 8.9 g/dL (11.5-16.0)
[2022-05-03 09:14] LABS: Bun/Creatinine Ratio 11.6 (12.0-20.0); Calcium, Blood 9.9 mg/dL (8.5-10.1); Creatinine, Blood 0.61 mg/dL (0.40-1.00); Potassium, Blood 3.8 mmol/L (3.5-5.5)
--- NOTE | 2022-05-03 18:48 | NUR ---
1730 - ASSUMED CARE FROM LILLY MAYA RN. PT RESTING IN BED, NO ACUTE DISTRESS
--- NOTE | 2022-05-04 05:51 | NUR ---
SHIFT SUMMARY ASSUMED CARE OF PT AT 1900. PT ORIENTED TO SELF AND HOSPITAL ONLY. PT HAS SOME CLEAR SPEECH BUT MUMBLES FREQUENTLY AND A MAJORITY OF SPEECH IS NONSENSICAL. PT HR ST 120'S, SPO2 >90% ON 2L VIA NC. NG TUBE PATENT AND TF NOW FLOWING AT 65ML/HR. RATE INCREASED AT 0200, PT TOLERATING WELL. NO RESIDUAL GREATER THAN 10ML NOTED. POWERGLIDE PT IN LILIBETH PATENT, ABLE TO DRAWBACK EASILY. 2+ BLE. PT RESISTANT TO SOME CARE, BUT COOPERATIVE MAJORITY OF TIME. PT VERY STIFF AND DIFFIULT TO REPOSITION BUT PT WAS TURNED Q2H. ORAL CARE ONLY PERFORMED ONCE, PT DECLINED OTHERS. ROSSI PATENT AND DRAINING DARK YELLOW URINE TO GRAVITY. NEW MEPILEX DRESSINGS PLACED ON HEELS. MILD BLANCHABLE REDNESS NOTED. PLACED FOR PREVENTATIVE. BLE ELEVATED ON PILLOWS AND FOOT OF BED ELEVATED. WILL CONTINUE TO CARE FOR PT AND [facility]
--- NOTE | 2022-05-04 17:01 | NUR ---
Spoke to pt's daughter Stacy who reports the information on her mom's insurance is: [facility] Client ID # [id number] Medicare supplement Plan F Medicare ID Number [id number]
--- NOTE | 2022-05-04 17:26 | NUR ---
SHIFT SUMMARY PT LETHARGIC THIS SHIFT, APPEARED TO BE SLEEPING. DIFFICULT TO AROUSE. ZYPREXA DC'D PER MD CUEVA. SP02>90% ON RA. TELEMETRY SHOWS SINUS TACH, HR MOSTLY 130'S. THIS AFTERNOON, PT STARTED HAVING MULTIPLE RUNS OF SVT, MOSTLY LASTING 14 SECS PER CON[employer] ASSOCIATION MANAGER. AVG RATE 160'S. CALL PLACED TO TO MD CUEVA. MD CUEVA W/ ORDERS FOR 12.5 METOPROLOL PT, D/T SOFT BP. GIVEN PER EMAR. SBP 90'S. TF INFUSED PER ORDERS AT GOAL RATE, MINIMAL RESIDUAL IN NG TUBE, TUBING CHANGED THIS SHIFT. ROSSI CATHETER DRAINING TO GRAVITY. NO BM THIS SHIFT. REPOSITIONED Q2H, CURRENTLY FLOATED ON PILLOWS. PT'S DAUGHTER, ARMAND, CALLED FOR UPDATE THIS AFTERNOON. CALL LIGHT IN REACH.
[2022-05-05 05:47] LABS: BASOPHILS ABSOLUTE AUTO 0.09 K/mm3 (0.00-0.23); BASOPHILS PERCENT AUTO 1 % (0-2); EOSINOPHILS ABSOLUTE AUTO 2.18 K/mm3 (0.00-0.68); EOSINOPHILS PERCENT AUTO 19 % (0-6); Hematocrit 26.8 % (33.0-51.0); Hemoglobin 8.6 g/dL (11.5-16.0); IMMATURE GRAN ABSOLUTE AUTO 0.07 K/mm3 (0.00-0.10); IMMATURE GRAN PERCENT AUTO 1 % (0-1); LYMPHOCYTES PERCENT AUTO 20 % (21-46); MONOCYTES ABSOLUTE AUTO 0.97 K/mm3 (0.16-1.47); MONOCYTES PERCENT AUTO 8 % (4-13); Mean Corpuscular HGB 29.9 pg (26.0-34.0); Mean Corpuscular HGB Conc 32.1 g/dL (31.5-36.5); Mean Corpuscular Volume 93 fL (80-100); Mean Platelet Volume 9.9 fL (9.1-12.4); NEUTROPHILS ABSOLUTE AUTO 6.15 K/mm3 (1.96-9.15); NEUTROPHILS PERCENT AUTO 52 % (41-73); Platelet Count 655 K/mm3 (150-400); RDW Coefficient Variation 17.1 % (11.7-14.2); RDW Standard Deviation 56.5 fL (35.1-46.3); Red Blood Cell Count 2.88 M/mm3 (3.80-5.20); White Blood Cell Count 11.76 K/mm3 (4.00-11.30)
[2022-05-05 06:09] LABS: Albumin, Blood 2.5 g/dL (3.4-5.0); Albumin/Globulin Ratio 1.1 (0.8-1.8); Bilirubin, Total 0.8 mg/dL (0.1-1.0); Bun/Creatinine Ratio 20.5 (12.0-20.0); Creatinine, Blood 0.54 mg/dL (0.40-1.00); Globulin, Blood 2.2 g/dL (2.2-4.0); Potassium, Blood 4.1 mmol/L (3.5-5.5); Total Protein, Blood 4.7 g/dL (6.4-8.2)
--- NOTE | 2022-05-05 06:38 | NUR ---
Assumed care of the pt at 1900 at which time she appeared intermittently anxious and lethargic. She was fidgeting and her heart rate was elevated. Pt has become more alert throughout the shift and has been more cooperative with personal care, including two times of oral care. She is slow to respond at times and requires patience but follows directions when asked respectfully. Tube feed into her NG tube is at target of 60 ml/hr with 100 ml flush every four hours. Patient denies any discomfort with this. She did have a fever and was medicated with Tylenol per tube and has since been afebrile. Patient is weak all over and has notable anasarca, but admits to being bedbound at home. She has been sinus tach on the tele but remained in the 110s. Her saturation has been >92% on 2.5L by NC except during one episode of increased sputum in her throat, where she felt she couldn't breathe and dropped into the 70s - this resolved with suction and she denies any further episodes. Patient is a 3 person change and had one runny brown BM. Curtis in place and draining dark yellow sediment urine. She admits to some pain to her legs which appears to be related to pressure.
--- NOTE | 2022-05-05 18:11 | NUR ---
SUMMARY PT RESTING IN BED. RESPONDS TO VERBAL. CONVERSATION IS NONSENSICAL MOST OF THE TIME. HAS DIFFICULTY FOLLOWING COMMANDS. WITH ST THIS AM PT'S SWALLOW IS VERY DELAYED. REMAINS NPO WITH TUBE FEED PER NGT. FREQUENT ORAL CARE. PT DOESN'T TOLERATE ORAL CARE WELL, HAS VERY SENSITIVE GAG REFLEX. HR ST 130'S WHEN AGITATED BY CARE. NO OTHER CHANGES THIS SHIFT.
--- NOTE | 2022-05-06 06:25 | NUR ---
PT REFUSED AM LABS AND BEGAN SWATTING AT STAFF AND ATTEMPTING TO GRAB SHIRT OF THIS RN. THIS RN SPOKE WITH PT REGARDING IMPORTANCE OF LABS BUT PT STATES "I KNOW I'M GETTING BETTER".
--- NOTE | 2022-05-06 06:43 | NUR ---
AGENCY DIRECTOR SUMMARY ASSUMED CARE OF THE PT AT 1900. SHE IS ALERT AND ORIENTED TO SELF AND FAMILY WITH INTERMITTENT CONFUSION. SHE WAS NOTED TO HAVE A FEVER OF 102.9 AND WAS MEDICATED WITH TYLENOL IN HER NG TUBE WITH IMPROVEMENT IN TEMPERATURE DOWN TO 99.9 THIS MORNING. PT HAD A MAP OF 59 EARLY IN THE MORNING AND RESIDENT WAS CONTACTED REGARDING HER CONDITION - ORDERS OBTAINED FOR FLUID BOLUS AND 500 MLS OF MAINTENANCE NS ALONG WITH BLOOD CULTURES, LACTIC ACID, AND URINALYSIS. PT LACTIC WAS 2.9 PRIOR TO BOLUS BUT SHE REFUSED THE AM LABS AND STARTED TO GET IRRITABLE AND SWAT AT THIS RN. PT WAS REDIRECTED AND LEFT TO REST. SHE REPORTS FEELING PAINFUL IN THE RIGHT ANKLE FOLLOWING PREVIOUS ANKLE FX. XR WAS OBTAINED THIS SHIFT AND AWAITING READ FOR COMPARISON OF PT PNA. PT STARTED ON MEREPENEM RELATED TO HIGH FEVER AND PNA. PT HAS BEEN SINUS TACH ON TELE IN THE 110S TO 130S WHEN PT IS AGITATED. SHE HAS BEEN >92% ON 2L BY NC WHILE AT REST. CONTINUOUS TUBE FEED CONTINUED AT 65 ML/HR AND 145 FLUSH Q4H.
[2022-05-06 08:22] LABS: BASOPHILS ABSOLUTE AUTO 0.07 K/mm3 (0.00-0.23); BASOPHILS PERCENT AUTO 1 % (0-2); EOSINOPHILS ABSOLUTE AUTO 2.67 K/mm3 (0.00-0.68); EOSINOPHILS PERCENT AUTO 19 % (0-6); Hematocrit 27.4 % (33.0-51.0); Hemoglobin 8.9 g/dL (11.5-16.0); IMMATURE GRAN ABSOLUTE AUTO 0.07 K/mm3 (0.00-0.10); IMMATURE GRAN PERCENT AUTO 1 % (0-1); LYMPHOCYTES ABSOLUTE AUTO 2.35 K/mm3 (0.84-5.20); LYMPHOCYTES PERCENT AUTO 17 % (21-46); MONOCYTES ABSOLUTE AUTO 1.22 K/mm3 (0.16-1.47); MONOCYTES PERCENT AUTO 9 % (4-13); Mean Corpuscular HGB 30.5 pg (26.0-34.0); Mean Corpuscular HGB Conc 32.5 g/dL (31.5-36.5); Mean Corpuscular Volume 94 fL (80-100); Mean Platelet Volume 9.7 fL (9.1-12.4); NEUTROPHILS ABSOLUTE AUTO 7.81 K/mm3 (1.96-9.15); NEUTROPHILS PERCENT AUTO 55 % (41-73); Platelet Count 644 K/mm3 (150-400); RDW Coefficient Variation 17.2 % (11.7-14.2); RDW Standard Deviation 57.4 fL (35.1-46.3); Red Blood Cell Count 2.92 M/mm3 (3.80-5.20); White Blood Cell Count 14.19 K/mm3 (4.00-11.30)
[2022-05-06 09:25] LABS: Albumin, Blood 2.4 g/dL (3.4-5.0); Bilirubin, Total 1.1 mg/dL (0.1-1.0); Bun/Creatinine Ratio 18.3 (12.0-20.0); Calcium, Blood 9.9 mg/dL (8.5-10.1); Creatinine, Blood 0.55 mg/dL (0.40-1.00); Globulin, Blood 2.3 g/dL (2.2-4.0); Total Protein, Blood 4.7 g/dL (6.4-8.2)
--- NOTE | 2022-05-06 18:20 | NUR ---
PT SUMMARY: PT REMAINS CONFUSED, MUMBLING, UNABLE TO ANSWER QUESTIONS, TALKS NONSENSICAL, WILL PICK ON LINES AND CORDS AND GRAB ON STAFF WHEN REPOSITIONING, PAINFUL WHEN TOUCHED OR MOVED. VITALS HRR ST 110-120'S, SBP 90-115'S, SATS ABOVE 95% ON 2L OF O2, RUNNING FEVER 100-102F MOST OF THE SHIFT, TYLENOL GIVEN TWICE TEMP WAS UP AND DOWN FROM 99-100.8F. PT HAS TF RUNNING AT A GOAL RATE 65MLS/HR WITH 30MLS FLUSH Q4HRS, NO RESIDUAL DURING CHECKS. PT HAD 2 LOOSE BMS FOR THE SHIFT, BED BATH COMPLETED, PT WAS PROVIDED REAL GOOD ORAL CARE, PT HAS A BUNCH OF THICK PLAQUES ON TONGUE AND SURROUNDING TEETH, A BIG PLAQUE GOT STUCK ON THE BACK OF THE THROAT OF THE PT THAT CAUSES HER TO GAG AND THROW UP, PT WAS ABLE TO GET RID OF THE BIG PLAQUE THROUGH HER EMESIS WITH TUBE FEEDING CONTENTS, HOB KEPT ELEVATED FOR THE SHIFT. NO OTHER ISSUES NOTED FOR THE SHIFT, PT REMAINS ON IV ABO, PT HAS BEEN REPOSITIONED Q2HRS, ROSSI BAG DRAINING DARK YELLOW URINE WITH SEDIMENTS. CALL LIGHTS IN REACH WILL REPORT TO ONCOMING SHIFT
[2022-05-07 04:35] LABS: BASOPHILS PERCENT AUTO 1 % (0-2); EOSINOPHILS PERCENT AUTO 22 % (0-6); Hematocrit 27.5 % (33.0-51.0); Hemoglobin 8.7 g/dL (11.5-16.0); IMMATURE GRAN ABSOLUTE AUTO 0.09 K/mm3 (0.00-0.10); IMMATURE GRAN PERCENT AUTO 1 % (0-1); LYMPHOCYTES ABSOLUTE AUTO 1.86 K/mm3 (0.84-5.20); LYMPHOCYTES PERCENT AUTO 13 % (21-46); MONOCYTES ABSOLUTE AUTO 1.16 K/mm3 (0.16-1.47); MONOCYTES PERCENT AUTO 8 % (4-13); Mean Corpuscular HGB 29.6 pg (26.0-34.0); Mean Corpuscular HGB Conc 31.6 g/dL (31.5-36.5); Mean Corpuscular Volume 94 fL (80-100); Mean Platelet Volume 10.3 fL (9.1-12.4); NEUTROPHILS ABSOLUTE AUTO 8.28 K/mm3 (1.96-9.15); NEUTROPHILS PERCENT AUTO 56 % (41-73); Platelet Count 639 K/mm3 (150-400); RDW Coefficient Variation 17.5 % (11.7-14.2); RDW Standard Deviation 59.2 fL (35.1-46.3); Red Blood Cell Count 2.94 M/mm3 (3.80-5.20); White Blood Cell Count 14.79 K/mm3 (4.00-11.30)
[2022-05-07 05:03] LABS: Bun/Creatinine Ratio 19.3 (12.0-20.0); Calcium, Blood 9.9 mg/dL (8.5-10.1); Creatinine, Blood 0.52 mg/dL (0.40-1.00); Potassium, Blood 3.8 mmol/L (3.5-5.5)
--- NOTE | 2022-05-07 07:43 | NUR ---
GRAPHICS SOFTWARE ENGINEER SUMMARY ASSUMED CARE OF THE PT AT 1900. SHE IS CONFUSED AND HALLUCINATING. THE PT IS NOT AWARE THAT SHE IS IN THE HOSPITAL. HER MENTATION IS VERY LABILE AND SHE ALTERNATES FROM BEING ANXIOUS, TO COOPERATIVE, TO COMBATIVE AT TIMES. PT CONTINUES TO RUN HIGH FEVERS - MEDICATED WITH TYLENOL. SHE HAS A TUBE FEED RUNNING AT 65 ML/HR. PT DID VOMIT HER TUBE FEED WITH ORAL CARE AND WAS GIVEN ZOFRAN WITH IMPROVEMENT IN PT SYMPTOMS - SHE REFUSED AUSCULTATION OF HER LUNGS BUT HER SATURATIONS DID DECREASE AND OXYGEN WAS INCREASED TO 6L BY NC, NEEDING IT PLACED IN HER MOUTH DUE TO MOUTH BREATHING. PT VERY PAINFUL WITH REPOSITIONING. ROSSI IN PLACE AND PATENT.
--- NOTE | 2022-05-07 10:59 | NUR ---
CARE ASSUMPTION THIS RN ASSUMED CARE AT 0700. VSS. TELE ST. PATIENT IS ALERT AND ORIENTED TO SELF AND PERSON. PATIENT REPORTS NO PAIN, CHEST PAIN OR SHORTNESS OF BREATH. PATIENT SKIN IS FARGILE AND HAS BRUSING, REDDNESS, SCRATCHES THROUGHOUT. SEE SKIN ASSESSMENT. PATIENT HAS CLEAR LUNG SOUNDS. PATIENT ABD IS FIRM. PATIENT HAS A ROSSI CATH IN PLACE DRAINING WITH GRAVITY. TUBE FEED AT 65. PATIENT IS INCONTIENT OF BOWELS. SEE SHIFT ASSESSMENT FOR FURTHER DETIALS. HACK IN TO SEE PATIENT THIS MORNING. PLAN OF CARE IS UP TO DATE. PATIENT REPOSITIONING EVERY TWO HOURS TO PREVENT SKIN BREAKDOWN. ORAL CARE PROVIDED PER SPEECH ORDERS. CALL LIGHT WITHIN REACH AND BED IN LOWEST POSITION WITH BED ALARM ON.
--- NOTE | 2022-05-07 18:06 | NUR ---
SHIFT SUMMARY PATIENT NUERO REMAINS INTACT. BP IS TRENDING ON THE SOFTER SIDE. PATIENT HAS HAD A FEVER OF 100.3-102 THROUGHOUT THE SHIFT. MEDICATED PER EMAR AND ICE PACKS PROVIDED. ORAL CARE HAS BEEN DONE SEVERAL TIMES THIS SHIFT. PATIENT HAS CASTS AND MUCOUS AT THE BACK OF THE THROAT. PATIENT RECEIVED IV ZOFRAN DUE TO HAVING AN EPISODE OF VOMITTING. MD CUEVA CALLED. TUBE FEEDING STOPPED AND WILL RESUME AT 1930 AND GIVE NAUSEA MEDICATION WHEN RESTARTING. PATIENT REPOSITIONED THROUGHOUT THE SHIFT. CALL LIGHT IS WITHIN REACH AND BED IN LOWEST POSITION WITH BED ALARM ON. PLAN OF CARE IS UP TO DATE.
[2022-05-08 05:15] LABS: Hematocrit 28.1 % (33.0-51.0); Hemoglobin 8.9 g/dL (11.5-16.0); Mean Corpuscular HGB 29.8 pg (26.0-34.0); Mean Corpuscular HGB Conc 31.7 g/dL (31.5-36.5); Mean Corpuscular Volume 94 fL (80-100); Mean Platelet Volume 10.2 fL (9.1-12.4); Platelet Count 680 K/mm3 (150-400); RDW Coefficient Variation 17.7 % (11.7-14.2); RDW Standard Deviation 59.3 fL (35.1-46.3); Red Blood Cell Count 2.99 M/mm3 (3.80-5.20); White Blood Cell Count 16.19 K/mm3 (4.00-11.30)
[2022-05-08 06:39] LABS: Bun/Creatinine Ratio 17.2 (12.0-20.0); Calcium, Blood 10.7 mg/dL (8.5-10.1); Creatinine, Blood 0.58 mg/dL (0.40-1.00); Potassium, Blood 4.1 mmol/L (3.5-5.5)
--- NOTE | 2022-05-08 06:47 | NUR ---
SHIFT SUMMARY PT IS A&O X4 ; INTERACTING AND RESPONDING APPROPRIATELY. VSS. REMAINS ON RA, SPO2 >96%. PT REPORTS PAIN 8-9/10 IN BACK AND FLANK AREA. NEPHROSTOMY IN PLACE BUT DOES LEAK DUE TO THE MALPOSITIONING; DRAINING YELLOW/GREEN CLOUDY URINE. ABOUT 50 MLS OUT IN THE BAG THIS SHIFT. COLOSTOMY IN PLACE. PT MEDICATED PER EMAR FOR PAIN; PROVIDED RELIEF AND PT WAS ABLE TO REST SOME. NS INFUSING PER EMAR. NO ACUTE CHANGES THIS SHIFT. CALL LIGHT IN REACH, BED IN LOWEST POSITION AND BED ALARM ON.
--- NOTE | 2022-05-08 06:51 | NUR ---
SHIFT SUMMARY PT A&O X 1-2; WAXES AND WANES WITH ORIENTATION. PT IS LETHARGIC, NOT OPENING EYES BUT RESPONDING INTERMITTENTLY TO QUESTIONS. DOES BETTER WITH Y/N QUESTIONS. PT VERY WARM TO THE TOUCH, SKIN IS RED. PT HAS GENERALIZED EDEMA IN ABD, PUBIC AREA, BLE, BUE. THIGHS ARE WEEPING. VSS; ALTHOUGH TEMP RUNNING 100 - 101.2. MEDICATED PER EMAR W/LITTLE RELIEF. TF RUNNING. PT MEDICATED FOR NAUSEA PER EMAR, SEEMED TO HELP. Q2 TURNS AND ATTENDS CHANGED. PT HAVING FREQUENT LARGE, LOOSE STOOLS. CBG STABLE. CALL LIGHT IN REACH, PT NOT USING CALL LIGHT OR VERBALIZING ANY NEEDS. DAUGHTER CALLED THIS RN AND INFORMED THAT PT HAS PREVIOUSLY BEEN ON STEROIDS IN THE PAST AND THEN TAKEN OFF; ENDING WITH PT BECOMING ILL AND IN HOSPITAL. DAUGHTER EXPRESSED NOTICING A PATTERN. PT RECENTLY OFF STERIODS PER PCP AGAIN IN NOV AND NOW IN HOSPITAL. PT WANTS PROVIDER TO KNOW AND THINKS COULD BE CONTRIBUTING TO PT CONDITION. WILL UPDATE ONCOMING RN.
--- NOTE | 2022-05-08 07:19 | NUR ---
ORAL CARE DONE X2 THIS SHIFT. PT HAS MODERATE AMOUNT OF CAST BUILT UP IN MOUTH AND ROOF OF MOUTH. PT GAGS EASILY AND HAS HARD TIME TOLERATING ORAL CARE. PT MOUTH IS VERY DRY.
[2022-05-08 09:30] LABS: Base Excess Venous -1.5 mmol/L; Bicarbonate Venous 23.1 mmol/L (24.0-30.0); PCO2 Venous 41.1 mmHg (38-42); PO2 Venous 70.9 mmHg (38-42); pH Blood Venous 7.37 (7.34-7.37)
--- NOTE | 2022-05-08 18:41 | NUR ---
PT SUMMARY: PT HAS BEEN RUNNING FEVER SINCE THIS AM STARTED AT 100.3 TYLENOL WAS GIVEN WENT DOWN TO 99.9 LOWEST TEMP FOR THE SHIFT THE N BY THE END OF THE SHIFT STARTED SPIKING FEVER AGAIN TEMP WENT UP TO 103.1, DR LITTLE WAS CALLED SINCE TYLENOL WAS NOT WORKING AT THE TIME POSSIBLY BECAUSE PT HAD SOME EMESIS AFTER ORAL CARE 20 MINS AFTER MEDICATING THE PT, IBUPROFEN WAS ORDERED AND GIVEN ICE PACKS AND COOLING BLANKET PLACED ON PT TEMP NOW DOWN TO 102.4. TUBE FEEDING KEPT AT 50MLS/HR NO RESIDUAL THIS MORNING AND THEN HAD SOME 50MLS BEFORE DINNER TIME. PT REMAINED CONFUSED CAN RESPOND TO QUESTIONS MOSTLY YES OR NO STILL MUMBLES BUT MOST OF THE WORDS TODAY WERE UNDERSTANDABLE, STILL UNABLE TO FOLLOW COMMANDS, PT/OT/ST STILL ON HOLD DUE TO PT'S MENTAL STATUS. VITALS HRR ST 110-130'S, SBP 100-130'S, SATS ABOVE 90% ON 2L OF O2. 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 PT WAS STARTED ON VANCOMYCIN AND CEFEPIME TODAY. ORAL CARE PROVIDED, REPOSTIONED Q2HRS, ROSSI DRAINING DARK URINE VIA GRAVITY, PADS IN PLACE ON LOWER EXTREMITIES FOR WEEPING EDEMA, BED BATH COMPLETED, ONE REPORTED LOOSE BM FOR THE SHIFT. DAUGHTER CALLED AND WAS GIVEN UPDATE REGARDING PT'S STATUS.
--- NOTE | 2022-05-08 22:09 | NUR ---
PHYSICIAN NOTIFIED PHYSICIAN AWARE OF PT'S LOW BP AND MAP. ORDERS FOR ONE TIME FOSE OF MIDODRINE TO BE GIVEN NOW. WILL CONT TO MONITOR
--- NOTE | 2022-05-09 00:01 | NUR ---
TRANSFER NOTE PT BLOOD PRESSURE 93/55 AT BEGINNING OF SHIFT, PROVIDER NOTIFITED; NEW ORDERS FOR ONE TIME DOES OF MIDODRINE 5 MG. MIDODRINE ADMINSTERED W/NO IMPROVEMENT IN BP; 80/56, REPEAT SHOWS 73/41, MAPS <60. RAPID TRANSFER TO ICU. REPORT GIVEN TO GUSTAVO GO. PT TRANSFERRED VIA HOSPITAL BED, W/2L O2 AND BELONGINGS.
--- NOTE | 2022-05-09 01:37 | NUR ---
PT TRANSFER TO ICU 4: PT TRANSFER FROM PCU 5 TO ICU 4 [facility] TO [facility] AT [facility]334; PT TRANSFERRED TO THE UNIT R/T HYPOTENSION. PT ARRIVED TO THE UNIT WITH SBP IN THE 70'S AND MAP 56<. CALL PLACED TO DR MADRIGAL AT THIS TIME FOR REQUESTS OF LEVOPHED AND POSSIBLE CENTRAL LINE INSERTION; VERBAL ORDERS RECIEVED FOR LEVOPHED STAT. DR MADRIGAL BY TO ASSESS PT AND INSERTION OF CENTRAL LINE AT THIS TIME. RIJ CENTRAL LINE PLACED AND LEVO GTT INTIATED AT 10 MCG; SBP IN 80'S AT THIS TIME. SBP IMPROVED TO 100-110'S, AND LEVO GTT @ 212 MCG AT THIS TIME. 500 MLS BOLUS AND 25 G ALBUMIN INTIATED AT THIS TIME WELL. PT LETHARGIC AND CONFUSED WHEN ARRIVED TO UNIT AND NOT ABLE TO STATED NAME OR ; PT RESPONSIVE TO VERBAL STIMULI AND ATTEMPTS TO ANSWER QUESTIONS BUT SPEECH INCOMPREHENSIBLE AT TIME. PT FOLLOWING SIMPLE COMMANDS INCONSISTENTLY. PT ON 4 L VIA NC AND LUNG SOUNDS ARE CLEAR AND DIM IN BASES. HR 130'S AND SINUS TACH ON MONITOR. PT HAD A LOOSE BOWEL MOVEMENT WHEN BROUGHT TO THE UNIT; PT CLEANED UP AND NEW ATTENDS PLACED ON PT. PT HAS ROSSI IN PLACE THAT IS DRAINING TO GRAVITY; YELLOW, CLOUDY URINE. PT VERY EDEMATOUS AND WEEPING IN BLE. PPP X 4. PG IN JODIE FLUSHES BUT IS NOT DRAWING BLOOD BACK. BED LOWERED, CALL LIGHT IN REACH, WILL CONTINUE TO MONITOR.
[2022-05-09 03:43] LABS: Source, Urine Clean Catch
[2022-05-09 03:47] LABS: Appearance, Urine Hazy (Clear); Bilirubin, Urine Neg (Neg); Blood, Urine 4+ (Neg); Color, Urine Yellow (P-Yellow); Glucose Qualitative, Urine Neg (Neg); Ketones, Urine 1+ (Neg); Leukocyte Esterase, Urine 2+ (Neg); Nitrite, Urine Neg (Neg); Protein, Urine 4+ (Neg); Specific Gravity, Urine 1.025 (1.003-1.022); Urobilinogen, Urine NORM (Normal)
[2022-05-09 04:16] LABS: BASOPHILS ABSOLUTE AUTO 0.07 K/mm3 (0.00-0.23); BASOPHILS PERCENT AUTO 0 % (0-2); EOSINOPHILS ABSOLUTE AUTO 4.18 K/mm3 (0.00-0.68); EOSINOPHILS PERCENT AUTO 21 % (0-6); Hematocrit 29.1 % (33.0-51.0); Hemoglobin 9.2 g/dL (11.5-16.0); IMMATURE GRAN ABSOLUTE AUTO 0.26 K/mm3 (0.00-0.10); IMMATURE GRAN PERCENT AUTO 1 % (0-1); LYMPHOCYTES PERCENT AUTO 6 % (21-46); MONOCYTES ABSOLUTE AUTO 1.44 K/mm3 (0.16-1.47); MONOCYTES PERCENT AUTO 7 % (4-13); Mean Corpuscular HGB 30.1 pg (26.0-34.0); Mean Corpuscular HGB Conc 31.6 g/dL (31.5-36.5); Mean Corpuscular Volume 95 fL (80-100); Mean Platelet Volume 9.8 fL (9.1-12.4); NEUTROPHILS ABSOLUTE AUTO 12.67 K/mm3 (1.96-9.15); NEUTROPHILS PERCENT AUTO 64 % (41-73); Platelet Count 622 K/mm3 (150-400); RDW Coefficient Variation 18.1 % (11.7-14.2); RDW Standard Deviation 61.4 fL (35.1-46.3); Red Blood Cell Count 3.06 M/mm3 (3.80-5.20); White Blood Cell Count 19.72 K/mm3 (4.00-11.30)
[2022-05-09 04:37] LABS: Bacteria Many /hpf; Squamous Epithelial Cells Few /hpf (Few)
[2022-05-09 04:37] LABS: Albumin, Blood 2.6 g/dL (3.4-5.0); Anion Gap 11 mmol/L (6-16); Blood Urea Nitrogen 14 mg/dL (8-24); Bun/Creatinine Ratio 18.8 (12.0-20.0); CO2, Blood 19 mmol/L (21-32); Chloride, Blood 112 mmol/L (98-108); Creatinine, Blood 0.74 mg/dL (0.40-1.00); Glomerular Filtration Rate 88 (60-); Glucose, Blood 112 mg/dL (70-99); Phosphorus, Blood 4.6 mg/dL (2.5-4.9); Potassium, Blood 3.8 mmol/L (3.5-5.5); Sodium, Blood 142 mmol/L (136-145)
--- NOTE | 2022-05-09 06:37 | NUR ---
SHIFT SUMMARY: LEVO GTT @ 6 MCG/KG/MIN; HR 100'S, SBP 100-110, SINUS TACH ON MONITOR. PT ON NC @ 4 LPM WITH SPO2 97<; LUNG SOUNDS CLEAR AND DIM BASES. PT HAS RIJ THAT WAS PLACED WHEN TRANSFERRED TO THE UNIT. PT HAVING LOOSE BOWEL MOVEMENTS TWICE THIS SHIFT. ROSSI CATH REPLACED THIS SHIFT DUE TO DISCREPENCY ON WHEN ORIGINAL WAS PLACED; PT HAS OLIGURIA, URINE YELLOW, CLOUDY. PT VERY EDEMATOUS AND BLE ARE WEEPING; DRY-FLOW IN PLACE. ORAL CARE COMPLETED AND LARGE CAST REMOVED FROM PT'S MOUTH. SPOKE WITH PT'S DAUGHTER, ARMAND, REGARDING TRANSFER AND SHE WAS UPDATED AND ALL QUESTIONS ANSWERED AT THIS TIME. WILL CONTINUE TO MONITOR UNTIL ONCOMING RN ARRIVES.
--- NOTE | 2022-05-09 08:23 | NUR ---
ASSUMED CARE REPORT FROM DONAVAN CHEN AT 0700. PT RESTING IN BED. OCCASIONALLY OPENS EYES, NOT TO COMMANDS. SQUEEZES HAND BILATERALLY ON COMMAND. MOANS, CRIES AND INCOHERANT SPEECH. CRIES OUT c ALL CARE. DOES NOT ANSWER QUESTIONS. LUNGS CLEAR, DIM IN BASES. 2L VIA HFNC, O2 SATS >96%. WEAK COUGH. ST ON MONITOR, RATE 100-110'S. LEVO GTT FOR MAP>65. ANASCARSA, 3+ WEEPING EDEMA TO BLE, 2+ TO BUE. SKIN FRAGILE, SEVERAL BLISTERED AREAS. MOUTH DRY c PLAQUE, ORAL CARE q2 HR. TUBE FEEDS RESTARTED AT HALF GOAL RATE. ABD OBESE, SOFT, PT TENDER c ANY PALPATION TO ENTIRE BODY. BT X 4. ROSSI PATENT, DRAINING MARY URINE TO GRAVITY. CVC TO RIJ, DRESSING C/D/I. POWERGLIDE TO LUE. AFEBRILE. WILL CONTINUE TO MONITOR.
--- NOTE | 2022-05-09 12:28 | NUR ---
Spoke with pt's daughter Stcay this morning. She was tearful, states she is having a rough time with her mom being so far away, and not being able to do anything to make her better. She reports pt has been hospitalized multiple times in the past for UTI's, and at one time was placed on hospice for a "failure to thrive" type of diagnosis, she's unsure of specifics. However, Stacy states that each time pt was not doing well, she always "bounced back" when placed on steroids. She states pt used to take prednisone, and each time it was d/c'd for using penitentiary, pt would quickly decline and end up back in hospital. She claims pt was even taken off of hospice once she began taking dexamethasone for pain/inflammation, as she began eating again, and regained enough energy to carry out her usual routine. She reports the pt continued taking dexamethasone for approximately 10 months after being taken off hospice. She states the dexamethasone was discontinued, and pt began to decline almost immediately, with her being re-hospitalized this current time. I did take this information to Dr. Mckeon, and he is ordering labs to check cortisol level.
--- NOTE | 2022-05-09 17:08 | NUR ---
SHIFT SUMMARY NO ACUTE CHANGES THIS SHIFT. NEURO ASSESSMENT UNCHANGED. REMAINS ON LEVO 6 MCG/MIN FOR MAP> 65. ST, RATE 100-110'S. LUNGS CLEAR, 2L VIA NC. TUBE FEEDS CHANGED TO VHP AT 40 ML/HR c 30 ML FLUSH q4 HR. ONE EPISODE OF EMESIS THIS SHIFT, MEDICATED c ZOFRAN. PT HAS SENSITIVE GAG REFLEX. ORAL CARE q2. ONE BM THIS SHIFT. ROSSI PATENT, DRAINED 1000ML MARY URINE c SEDIMENT TO GRAVITY. SKIN RED, FLUSHED, FRAGILE. ANASCARCA. 3+ EDEMA TO EXT. ACTH LEVELS TESTED THIS SHIFT, STARTED PT ON STEROIDS. DIURETICS D/C'D. MRI ORDERED, UNABLE TO PERFORM D/T PT NEEDS FOR PRESSORS. WILL CONTINUE TO MONITOR UNTIL REPORT TO ONCOMING NURSE.
--- NOTE | 2022-05-09 20:31 | NUR ---
ASSUMPTION OF CARE/ASSESSMENT; ASSUMED CARE OF PT AT 1900. PT IS IN BED AND ASLEEP BUT WAKES EASILY TO VERBAL STIMULI. PT REMAINS CONFUSED AND IS FOLLOWING REPEATED COMMANDS. PT CONTINUES TO HAVE A STARTLE REFLEX AND IS ANXIOUS WITH PT CARE. PT CURRENTLY ON LEVO GTT @ 2 MCG/KG/MIN WITH SBP 100'S AND MAP 68; PT SINUS TACH ON MONITOR WITH HR 110'S. PT HAS LOW GRADE FEVER @ 99.2; BLANKETS OFF, FAN IN PLACE, TYLENOL PER EMAR. PT HYPERACTIVE BS IN ALL QUADRANTS; NGT IN PLACE AND INFUSING VHP @ 40 MLS/HR. PT INCONTINENT WITH BOWEL MOVEMENTS AND DEPENDS IN PLACE. ROSSI IN PLACE AND DRAINING TO GRAVITY; URINE MARY, CLOUDY. BLE EDEMATOUS 3+ WEEPING, BUE 2+, ABD AND GROIN REGION 2+; SKIN FLUSHED, AND SCATTERED BLISTERES. PT HAS PG LILIBETH AND CENTRAL LINE RIG THAT IS INFUSING LEVO AND NS TKO X 2. BED LOWERED, CALL LIGHT IN PLACE. WILL CONTINUE TO MONITOR.
[2022-05-10 04:44] LABS: BASOPHILS ABSOLUTE AUTO 0.08 K/mm3 (0.00-0.23); BASOPHILS PERCENT AUTO 0 % (0-2); EOSINOPHILS ABSOLUTE AUTO 0.14 K/mm3 (0.00-0.68); EOSINOPHILS PERCENT AUTO 1 % (0-6); Hematocrit 29.2 % (33.0-51.0); Hemoglobin 9.2 g/dL (11.5-16.0); IMMATURE GRAN ABSOLUTE AUTO 0.33 K/mm3 (0.00-0.10); IMMATURE GRAN PERCENT AUTO 2 % (0-1); LYMPHOCYTES ABSOLUTE AUTO 1.63 K/mm3 (0.84-5.20); LYMPHOCYTES PERCENT AUTO 9 % (21-46); MONOCYTES ABSOLUTE AUTO 0.63 K/mm3 (0.16-1.47); MONOCYTES PERCENT AUTO 3 % (4-13); Mean Corpuscular HGB 29.6 pg (26.0-34.0); Mean Corpuscular HGB Conc 31.5 g/dL (31.5-36.5); Mean Corpuscular Volume 94 fL (80-100); Mean Platelet Volume 10.3 fL (9.1-12.4); NEUTROPHILS ABSOLUTE AUTO 16.17 K/mm3 (1.96-9.15); NEUTROPHILS PERCENT AUTO 85 % (41-73); Platelet Count 632 K/mm3 (150-400); RDW Coefficient Variation 18.3 % (11.7-14.2); RDW Standard Deviation 60.8 fL (35.1-46.3); Red Blood Cell Count 3.11 M/mm3 (3.80-5.20); White Blood Cell Count 18.98 K/mm3 (4.00-11.30)
[2022-05-10 05:29] LABS: Free Thyroxine 0.71 ng/dL (0.70-1.60)
[2022-05-10 05:32] LABS: Albumin, Blood 2.5 g/dL (3.4-5.0); Anion Gap 9 mmol/L (6-16); Blood Urea Nitrogen 13 mg/dL (8-24); CO2, Blood 21 mmol/L (21-32); Calcium, Blood 10.3 mg/dL (8.5-10.1); Chloride, Blood 113 mmol/L (98-108); Creatinine, Blood 0.62 mg/dL (0.40-1.00); Glomerular Filtration Rate 97 (60-); Glucose, Blood 233 mg/dL (70-99); Phosphorus, Blood 2.7 mg/dL (2.5-4.9); Potassium, Blood 3.6 mmol/L (3.5-5.5); Sodium, Blood 143 mmol/L (136-145); Triiodothyronine, Free 0.94 pg/mL (2.18-3.98)
--- NOTE | 2022-05-10 06:28 | NUR ---
SHIFT SUMMARY: NO ACUTE CHANGES OVER NIGHT. PT REMAINS ON LEVO GTT @ 2 MCG/KG/MIN; SBP 110'S AND HR 110'S. PT ON HFNC @ 2 LPM; LUNG SOUNDS REMAIN CLEAR WITH DIM BASES BILATERALLY. VSS THROUGHOUT THE NIGHT. PT SLEPT MAJORITY OF NIGHT. PT HAD ONE, LOOSE BOWEL MOVEMENT THIS SHIFT. ORAL CARE COMPLETED Q4HR AND SUCTIONING CANISTER REPLACED. PT CBG SLOWLY INCREASING AND WITH STERIOD MEDICATION STARTED YESTERDAY SC INSULIN MAY NEED TO BE CONSIDERED. WILL PASS ON THIS TO DAY SHIFT RN. BED LOWERED, CALL LIGHT IN REACH, WILL CONTINUE TO MONITOR UNTIL ONCOMING RN ARRIVES.
--- NOTE | 2022-05-10 07:40 | NUR ---
ASSUMED CARE REPORT FROM DONAVAN CHEN AT 0700. PT RESTING IN BED. RESPONSIVE TO VERBAL STIMULI. DOES NOT FOLLOW DIRECTIONS. MOANS AND CRIES OUT c CARE. WITHDRAWS FROM PAINFUL STIMULI. MOVES ALL EXT. RESTS WHEN UNDISTURBED. ST ON MONITOR, RATE 100-110'S. BP STABLE, LEVO GTT PLACED ON STANDBY. WILL MONITOR FOR MAP>65. ANASCARA, 3+ EDEMA TO BLE, 2+ TO BUE, 3+ TO ABD AND GROIN, WEEPING. REDNESS AND WARMTH NOTED TO TRUNK, GROIN AND HIPS. FRAGILE SKIN. LUNGS CLEAR. 2L VIA HFNC, O2 SATS >95%. OCCASIONAL NON PRODUCTIVE COUGH. ABD OBESE, SOFT. BT X 4. PT TENDER TO ANY PALPATION TO BODY. TUBE FEEDS AT GOAL, 40 ML/HR. OCCASIONAL GAGGING, MEDICATED c ZOFRAN. MOUTH DRY c PLAQUE COATING. WILL CONTINUE AGGRESSIVE ORAL CARE. PT TOLERATES POORLY. ROSSI PATENT, DRAINING MARY URINE c SEDIMENT TO GRAVITY. CVC TO RIJ, PG TO RUE. WILL CONTINUE TO MONITOR.
[2022-05-10 12:05] LABS: Vancomycin, Trough 13.3 ug/mL (5.0-10.0)
--- NOTE | 2022-05-10 15:15 | NUR ---
SHIFT SUMMARY/TRANSFER TO PCU NO ACUTE CHANGES THIS SHIFT. LEVO REMAINED OFF. MAP>65. ST, RATE 100-110'S. CONTINUES TO HAVE ANASCARSA, WEEPING. LASIX GIVEN. NEURO UNCHANGED, IRRITABLE c CARE, DOES NOT FOLLOW DIRECTIONS. MRI COMPLETE THIS SHIFT, NO FINDINGS. NARES CLEANED, DRY c CRUSTING. ORAL CARE q2 HR. REPORT TO BRIAN CHEN, ALL BELONGINGS TRANSFERRED TO ROOM. DAUGHTER UPDATED ON TRANSFER.
--- NOTE | 2022-05-10 16:54 | NUR ---
Pt no longer needing pressor support, and does appear to be more alert than on previous days. Pt's daughter states this is giving her some hope for improvement. She requests continued updates, and praises care staff for excellent care. Palliative Care to remain available.
[2022-05-10 17:11] LABS: ANA DIRECT Negative (Negative); ANTI-DNA (DS) AB QN <1 IU/mL (0-9); RNP ANTIBODIES <0.2 AI (0.0-0.9); SJOGREN'S ANTI-SS-A <0.2 AI (0.0-0.9); SJOGREN'S ANTI-SS-B <0.2 AI (0.0-0.9); SMITH ANTIBODIES <0.2 AI (0.0-0.9)
--- NOTE | 2022-05-10 17:51 | NUR ---
SHIFT SUMMARY; ASSUMED CARE FROM ICU AT 1400. MOANS AND RESPONDS TO NOXIOUS STIMULI ONLY. MOVES ARMS WHEN PROVIDING CARE. 3+ EDEMA TO TRUNK EXTENDING BILATERALLY TO LEGS. ROSSI IN PLACE DRAINING CLOUDY MARY URINE. TUBE FEED TO NG TUBE AT 40ML/HR. VSS, Q2 TURNS, WILL CONTINUE TO MONITOR AND TREAT UNTIL CHANGE OF SHIFT.
--- NOTE | 2022-05-10 21:39 | NUR ---
PATIENT UPDATE/ASSUMPTION OF CARE THIS RN ASSUMED CARE OF PATIENT AT 1900. REPORT TAKEN FROM BRIAN CHEN. PATIENT IS AROUSABLE WITH PAINFUL STIMULI. NO NOTED SPONTANEOUS EYE OPENING. MOANING AND INCOMPREHENSIBLE WORDS NOTED FREQUENTLY AT TIME OF SHIFT CHANGE. PATIENT FLEXION/EXTENSION NOTED WITH TOUCH AND CARE. ST ON THE MONITOR WITH HR 100-110'S, BP STABLE. FEVER MEDICATED PER EMAR PT WITH GOOD RESULTS. SPO2 >92% ON 2L VIA NC. THIS RN NOTED THAT RIGHT PUPIL IS FIXED, DILATED, AND ABNORMALLY SHAPED. THIS APPEARS TO BE A NEW CHANGE AFTER THIS RN REVIEWED CHART/NOTES. PATIENT NOT FOLLOWING COMMANDS AT THIS TIME. CALL PLACED TO MD KNOX REGARDING PUPILLARY CHANGE. NO NEW ORDERS AT THIS TIME; MD KNOX VERBALIZED NEEDING TO REVIEW CHART FURTHER. TEMP ROSSI CATHETER DRAINING DARK URINE TO GRAVITY. CATH/PERICARE DONE. NGT PATENT AND TUBE FEEDINGS PER EMAR AT GOAL. OCCASIONAL COUGH. COARSE LS WITH DIM IN BASES. HYPERACTIVE BS THROUGHOUT WITH LIQUID BM X1 SO FAR THIS SHIFT. HOB ELEVATED. Q2HR REPOSITIONING AND ORAL CARE. ANASARCA NOTED WITH +3 PITTING EDEMA BLE. BED IN LOWEST POSITION AND CALL LIGHT WITHIN REACH. THIS RN WILL REVIEW CHART AND CONTINUE TO MONITOR CLOSELY AND PROVIDE INTERVENTIONS NEEDED/ORDERED.
[2022-05-11 03:44] LABS: BASOPHILS ABSOLUTE AUTO 0.03 K/mm3 (0.00-0.23); BASOPHILS PERCENT AUTO 0 % (0-2); EOSINOPHILS ABSOLUTE AUTO 0.01 K/mm3 (0.00-0.68); EOSINOPHILS PERCENT AUTO 0 % (0-6); Hematocrit 25.4 % (33.0-51.0); Hemoglobin 8.1 g/dL (11.5-16.0); IMMATURE GRAN ABSOLUTE AUTO 0.54 K/mm3 (0.00-0.10); IMMATURE GRAN PERCENT AUTO 3 % (0-1); LYMPHOCYTES ABSOLUTE AUTO 1.81 K/mm3 (0.84-5.20); LYMPHOCYTES PERCENT AUTO 9 % (21-46); MONOCYTES ABSOLUTE AUTO 1.19 K/mm3 (0.16-1.47); MONOCYTES PERCENT AUTO 6 % (4-13); Mean Corpuscular HGB 29.9 pg (26.0-34.0); Mean Corpuscular HGB Conc 31.9 g/dL (31.5-36.5); Mean Corpuscular Volume 94 fL (80-100); Mean Platelet Volume 10.3 fL (9.1-12.4); NEUTROPHILS ABSOLUTE AUTO 15.84 K/mm3 (1.96-9.15); NEUTROPHILS PERCENT AUTO 82 % (41-73); Platelet Count 550 K/mm3 (150-400); RDW Standard Deviation 62.9 fL (35.1-46.3); Red Blood Cell Count 2.71 M/mm3 (3.80-5.20); White Blood Cell Count 19.42 K/mm3 (4.00-11.30)
[2022-05-11 04:17] LABS: Albumin, Blood 2.6 g/dL (3.4-5.0); Anion Gap 8 mmol/L (6-16); Blood Urea Nitrogen 26 mg/dL (8-24); Bun/Creatinine Ratio 43.3 (12.0-20.0); CO2, Blood 22 mmol/L (21-32); Calcium, Blood 10.1 mg/dL (8.5-10.1); Chloride, Blood 116 mmol/L (98-108); Glomerular Filtration Rate 98 (60-); Glucose, Blood 249 mg/dL (70-99); Phosphorus, Blood 2.3 mg/dL (2.5-4.9); Potassium, Blood 3.8 mmol/L (3.5-5.5); Sodium, Blood 146 mmol/L (136-145)
--- NOTE | 2022-05-11 04:25 | NUR ---
SHIFT SUMMARY PATIENT HAS BEEN MOANING/YELLING THROUGHOUT THIS SHIFT WITH OCCASIONAL WORDS THAT CAN BE MADE OUT. PATIENT WILL SAY THINGS LIKE "BACK" AND "HELP", ALONG WITH MOVING ALL EXTREMETIES AND ARCHING BACK WHILE YELLING. THIS RN SPOKE TO MD KNOX ON SEVERAL OCCASIONS FOR MEDICATIONS FOR WHAT APPEARED TO BE PAIN ACCORDING TO THE S/S THAT THIS RN WAS WITNESSING. 15MG IV TORADOL GIVEN WITH NO RESULTS. 25 MCG OF FENTANYL GIVEN AROUND 0347; PATIENT NOW APPEARS TO BE RESTING COMFORTABLY. RIGHT PUPIL CONTINUES TO BE DILATED, FIXED, AND ABDORMALLY SHAPED; MD KNOX AWARE WITH NO FURTHER ORDERS; SEE ASSESSMENT AND PREVIOUS NOTE. ST ON THE MONITOR WITH HR 100-110'S. BP STABLE. ON 2L VIA NC WITH SPO2 >92%. RR <20. TEMP 99.0-100.4 DURING THIS SHIFT; MEDICATING PRN PER EMAR. TUBE FEEDING THROUGH NGT AT GOAL. NO SIGNS OF N/V DURING THIS SHIFT. ORAL CARE Q4HRS AND NEEDED FOR DRY MOUTH. REPOSITIONING Q2HRS. HOB ELEVATED. BED IN LOWEST POSITION AND CALL LIGHT WITHIN REACH. THIS RN WILL CONTINUE TO MONITOR UNTIL SHIFT CHANGE AT 0700.
--- NOTE | 2022-05-11 17:41 | NUR ---
SHIFT SUMMARY; ASSUMED CARE AT 0700, APPEARS MORE ALERT TODAY, OPENS EYES SPONTANEOUSLY. GRADUALLY T/O DAY STARTS TO FORM WORDS. STATES WITH MUMBLED SPEECH "I WANT OUT OF THIS HOSPITAL". DENIES PAIN, ASKS FOR WATER, REMAINS NPO UNTIL SPEECH CAN EVALUATE. NG IN PLACE TO LEFT NARES TO TUBE FEEDING OF 40ML/HR. 2L 02 VIA NC, MOVES ARMS AND REACHES FOR NURSE WHEN PROVIDING CARE. NO PURPOSEFUL MOVEMENT OF LEGS NOTED. Q2 TURNS, LOOSE BM TODAY, ATTENDS, GOWN AND LINEN CHANGE. PITTING EDEMA TO ARMS, TRUNK, LEGS AND FEET. TEMP PROBE FOLLOWING DRANING TO GRAVITY MARY COLORED URINE WITH SEDIMENT. Q2 ORAL CARE DURING SHIFT, VSS, WILL CONTINUE TO MONITOR AND TREAT UNTIL CHANGE OF SHIFT.
[2022-05-11 18:10] LABS: ANTIMYELOPEROXIDASE (MPO) ABS <0.2 units (0.0-0.9); ANTIPROTEINASE 3 (PR-3) ABS <0.2 units (0.0-0.9); ATYPICAL PANCA <1:20 titer (Neg:<1:20); CYTOPLASMIC (C-ANCA) <1:20 titer (Neg:<1:20); PERINUCLEAR (P-ANCA) <1:20 titer (Neg:<1:20)
--- NOTE | 2022-05-11 21:00 | NUR ---
ASSUMPTION OF CARE THIS RN ASSUMED CARE OF PATIENT AT 1900. REPORT TAKEN FROM BRIAN CHEN. PATIENT IS ALERT AND SPONTANEOUSLY OPENING EYES AND TRACKING THIS RN. RIGHT PUPIL CONTINUES TO BE DILATED, FIXED, AND ELONGATED IN APPEARANCE. LEFT PUPIL PERRLA. PATIENT SPEAKING WITH SIMPLE SENTENCES ON OCCASIONS, CONTINUES TO HAVE EPISODES OF MOANING. OCCASIONALLY CAN ANSWER QUESTIONS APPROPRIATELY AND STATED SHE WAS IN THE HOSPITAL AND IS ORIENTED TO SELF; UNSURE OF DATE/YEAR. APPEARS TO BE HAVING HALLUCINATIONS SHE IS REACHING OUT AT TIMES AND HAVING CONVERSATIONS WHILE ALONE IN THE ROOM, MOTIONED WITH HANDS IF SHE WAS EATING SOMETHING. 2-3+ EDEMA IN ALL EXTREMETIES. BILATERAL THIGHS ARE WEEPING LIGHT YELLOW FLUID; CHANGING PAD NEEDED TO MAINTAIN SKIN INTERGRITY. REPOSITIONING AND DOING ORAL CARE Q2HRS. MEDICATING PER EMAR. TUBE FEEDINGS INCREASED PER ORDER TO REACH NEW GOAL RATE OF 65MLS/HR; CURRENTLY AT 50MLS/HR. BED IN LOWEST POSTITION AND CALL LIGHT WITHIN REACH. THIS RN WILL REVIEW CHART AND PROVIDE INTERVENTIONS NEEDED/ORDERED DURING THIS SHIFT.
--- NOTE | 2022-05-12 05:08 | NUR ---
SHIFT SUMMARY NO ACUTE CHANGES DURING THIS SHIFT. PATIENT CONTINUES TO APPEAR TO HAVE VISUAL/AUDITORY HALLUCINATIONS AND CALLS/YELLS OUT FREQUENTLY. SEE PREVIOUS NOTE AND ASSESSMENT. NO FURTHER CHANGES TO NEURO SINCE PREVIOUS NOTE/ASSESSMENT. VITALS STABLE. TEMP 99.0-100.0 DURING THIS SHIFT. TUBE FEEDING AT GOAL RATE. PATIENT APPEARS TO BE TOLERATING WELL. RSOSI CATHETER DRAINING TO GRAVITY. REPOSITIONING AND DOING ORAL CARE Q2HRS. BED IN LOWEST POSITION AND CALL LIGHT WITHIN REACH. THIS RN WILL CONTINUE TO MONITOR UNTIL SHIFT CHANGE AT 0700.
[2022-05-12 05:12] LABS: BASOPHILS ABSOLUTE AUTO 0.05 K/mm3 (0.00-0.23); BASOPHILS PERCENT AUTO 0 % (0-2); EOSINOPHILS ABSOLUTE AUTO 0.01 K/mm3 (0.00-0.68); EOSINOPHILS PERCENT AUTO 0 % (0-6); Hematocrit 25.8 % (33.0-51.0); Hemoglobin 8.4 g/dL (11.5-16.0); IMMATURE GRAN ABSOLUTE AUTO 0.88 K/mm3 (0.00-0.10); IMMATURE GRAN PERCENT AUTO 5 % (0-1); LYMPHOCYTES ABSOLUTE AUTO 2.01 K/mm3 (0.84-5.20); LYMPHOCYTES PERCENT AUTO 11 % (21-46); MONOCYTES ABSOLUTE AUTO 1.51 K/mm3 (0.16-1.47); MONOCYTES PERCENT AUTO 8 % (4-13); Mean Corpuscular HGB 30.4 pg (26.0-34.0); Mean Corpuscular HGB Conc 32.6 g/dL (31.5-36.5); Mean Corpuscular Volume 94 fL (80-100); Mean Platelet Volume 10.2 fL (9.1-12.4); NEUTROPHILS ABSOLUTE AUTO 14.56 K/mm3 (1.96-9.15); NEUTROPHILS PERCENT AUTO 77 % (41-73); NRBC ABSOLUTE 0.04 K/mm3 (0.00-0.02); NRBC Auto 0.2 /100 WBC (0.0-0.2); Platelet Count 537 K/mm3 (150-400); RDW Coefficient Variation 19.4 % (11.7-14.2); RDW Standard Deviation 63.7 fL (35.1-46.3); Red Blood Cell Count 2.76 M/mm3 (3.80-5.20); White Blood Cell Count 19.02 K/mm3 (4.00-11.30)
[2022-05-12 05:44] LABS: Ferritin, Serum 210 ng/mL (8-252); Iron Serum 59 ug/dL (50-170); Percent Saturation 34.3 % (15.0-50.0); Total Iron Binding Capacity 172 ug/dL (250-450)
[2022-05-12 06:05] LABS: Albumin, Blood 2.8 g/dL (3.4-5.0); Anion Gap 5 mmol/L (6-16); Blood Urea Nitrogen 37 mg/dL (8-24); Bun/Creatinine Ratio 61.6 (12.0-20.0); CO2, Blood 26 mmol/L (21-32); Calcium, Blood 9.5 mg/dL (8.5-10.1); Chloride, Blood 116 mmol/L (98-108); Glomerular Filtration Rate 98 (60-); Glucose, Blood 241 mg/dL (70-99); Phosphorus, Blood 2.7 mg/dL (2.5-4.9); Potassium, Blood 3.8 mmol/L (3.5-5.5); Sodium, Blood 147 mmol/L (136-145)
--- NOTE | 2022-05-12 17:09 | NUR ---
SUMMARY Neuro/Psych: Pt is A&O x 1. Speech is soft, nasally, and slurred. Pt has become more alert as shift has progressed. This morning, pt was not following commands and yelling out. Now, she is participating in simple conversation, following directions, pleasant and cooperative with care. Pt is still confused; she laughs and makes comments that are not contextually approriate. Musc/ADLs: Pt did not get out of bed this shift. Does not reposition independently. Requires staff to reposition her Q2H. Oral care with suction swab performed Q2H as well. Movement noted to BUE and BLE. Pt seems to favor left arm more than right arm, however. Resp: Lungs coarse t/o. SpO2 90% or greater with 2 LPM NC. Pt sounds like her nose is congested. Offered saline spray to bilateral nares. Humidified oxygen. Crusting noted to left nare, which is where NG tube is placed. Cardiac: ST per monitor. Weeping edema BLE/BLE in places where skin has been disrupted. GI: TF and flush per orders. Pt tolerating well. No BM this shift, : Good urine output from baird catheter. Skin: Unchanged from initial assessment.
[2022-05-13 04:40] LABS: BASOPHILS ABSOLUTE AUTO 0.06 K/mm3 (0.00-0.23); BASOPHILS PERCENT AUTO 0 % (0-2); EOSINOPHILS ABSOLUTE AUTO 0.01 K/mm3 (0.00-0.68); EOSINOPHILS PERCENT AUTO 0 % (0-6); Hematocrit 27.1 % (33.0-51.0); Hemoglobin 8.6 g/dL (11.5-16.0); IMMATURE GRAN ABSOLUTE AUTO 0.91 K/mm3 (0.00-0.10); IMMATURE GRAN PERCENT AUTO 6 % (0-1); LYMPHOCYTES ABSOLUTE AUTO 1.82 K/mm3 (0.84-5.20); LYMPHOCYTES PERCENT AUTO 12 % (21-46); MONOCYTES ABSOLUTE AUTO 1.37 K/mm3 (0.16-1.47); MONOCYTES PERCENT AUTO 9 % (4-13); Mean Corpuscular HGB 30.1 pg (26.0-34.0); Mean Corpuscular HGB Conc 31.7 g/dL (31.5-36.5); Mean Corpuscular Volume 95 fL (80-100); NEUTROPHILS ABSOLUTE AUTO 11.69 K/mm3 (1.96-9.15); NEUTROPHILS PERCENT AUTO 74 % (41-73); NRBC ABSOLUTE 0.06 K/mm3 (0.00-0.02); NRBC Auto 0.4 /100 WBC (0.0-0.2); Platelet Count 467 K/mm3 (150-400); RDW Standard Deviation 63.7 fL (35.1-46.3); Red Blood Cell Count 2.86 M/mm3 (3.80-5.20); White Blood Cell Count 15.86 K/mm3 (4.00-11.30)
[2022-05-13 05:01] LABS: Albumin, Blood 2.8 g/dL (3.4-5.0); Anion Gap 5 mmol/L (6-16); Blood Urea Nitrogen 34 mg/dL (8-24); Bun/Creatinine Ratio 69.4 (12.0-20.0); CO2, Blood 27 mmol/L (21-32); Calcium, Blood 9.2 mg/dL (8.5-10.1); Chloride, Blood 115 mmol/L (98-108); Creatinine, Blood 0.49 mg/dL (0.40-1.00); Glomerular Filtration Rate 103 (60-); Glucose, Blood 199 mg/dL (70-99); Phosphorus, Blood 2.9 mg/dL (2.5-4.9); Potassium, Blood 3.9 mmol/L (3.5-5.5); Sodium, Blood 147 mmol/L (136-145)
--- NOTE | 2022-05-13 06:02 | NUR ---
SHIFT SUMMARY ASSUMED CARE OF PT AT 0100. PT WAS TALKING TO SELF AND PULLING ON RESTRAINTS. PT WILL CALL OUT OCCASIONALLY. PT FINALLY WENT TO BED AROUND 0300 THIS AM. PT REMAINED ON RA. PT WAS INCONTIENT OF URINE. TURNED Q2. NO ACOUTE EVENTS.
--- NOTE | 2022-05-13 06:06 | NUR ---
SHIFT SUMMARY ASSUMED CARE OF PT AT 0100. PT IS ALERT AND TALKING TO SELF BUT NOT ORIENTED. PT HAVING HALLUCINATIONS ABOUT A BABY BEING IN THE ROOM WITH HER. PT TEARFUL AT TIMES BUT THEM LAUGHS. PT WILL ASNSWER QUESTIONS BUT NOT COHERENTLY. CRACKLES HEARD WHEN PT BREATHS. PT REMAINED ON 2L NC. AT 0200 PT PULLED NG TUBE OUT. ATTEMPTS AT DOBHOFF WERE MADE BUT UNSUCCESSFUL; PT STARTED TO HAVE BLOOD COME OUT OF NOSE AND MOUTH. HOSPITALIST NOTFIED AND SAID TO WAIT TILL MORNING AND REASSESS PT IS POSSIBLY HAVING PEG TUBE PLACED. PT TURNED Q2. PT SKIN IS WEEPING. PT HAS VARIES SKIN TEARS AND SCRATCHES. PT HAD WATERY STOOL T/O THE NIGHT. ROSSI DRAINING WITH GRAVITY.
--- NOTE | 2022-05-13 07:53 | NUR ---
ASSUMED CARE OF PT THIS AM PT. RESPONDS TO VERBAL STIMULI, VERY CONFUSED AND HAVING HALLUCINATIONS. SHE THINKS SHE IS IN [place]. SPEECH DIFFICULT TO UNDERSTAND AT TIMES, ORAL CARE DONE HOWEVER PT CONTINUES TO BITE DOWN ON SUCTION MAKING IT DIFFICULT TO CLEAN MOUTH. UNABLE TO REORIENT. PT. FEELS WARM TO TOUCH, FLUSHED. TEMP 100.2 THIS AM. PT. SINUS TACH THIS AM, HR AROUND 115. PT. BP SLIGHTLY ELEVATED SEE VITALS. PT. HAS AUDIBLE WHEEZES THIS AM AND SOUNDS COARSE T/O. PT. CURRENTLY ON 4L HUMIDIFIED NC. ABD SOFT NON TENDER. ROSSI DRAINING TO GRAVITY. EDEMA T/O EXTREM. PT. YELLING OUT AND MOANING FREQUENTLY.
--- NOTE | 2022-05-13 08:09 | NUR ---
CALL TO REMOTE MONITORING TO UPDATE ON CENTRAL LINE TO RIJ AND REQUESTED TO BE NOTIFIED IF PT. APPEARS TO BE REACHING TOWARD LINES.
--- NOTE | 2022-05-13 09:33 | NUR ---
UPDATE MINIMAL OUTPUT NOTED TO CATHETER WITH SEDIMENT. CATHETER FLUSHED WITH INSTANT URINE RETURN WITH OUTPUT OF 800ML. PT HAVING FREQUENT LIQUID STOOLS. RECTAL TUBE PLACED TO PROTECT SKIN INTEGRITY. STOOL SAMPLE OBTAINED.
--- NOTE | 2022-05-13 18:12 | NUR ---
SHIFT SUMMARY PT. MORE AWAKE AFTER NAP TODAY. SHE WAS ABLE TO ANSWER SOME QUESTIONS AND PARTICIPATE WITH ORAL CARE. PT. STILL CONFUSED AND HAVING HALLUCINATIONS AT TIMES STATING "ARE MY BABIES HERE?" AND OCCASIONALLY TALKING TO "THE KIDS". PT. DENIES PAIN T/O SHIFT. VSS. TUBEFEEDING REMAINS ON STAND BY. DELINQUENT NOTICE MACHINE OPERATOR CONSULT PLACED TODAY FOR CLINIMIX HOWEVER NO ONE IN HOUSE TO START THIS PROCESS TODAY. PT. CONTINUES WITH RECTAL TUBE AND ROSSI IN PLACE. ALL NEEDS MET AT THIS TIME. REPORT TO ONCOMIN GRN.
--- NOTE | 2022-05-14 05:58 | NUR ---
ACCOUNT MANAGER SUMMARY ASSUMED CARE OF THE PT AT 1900. SHE IS ALERT AND ORIENTED TO NONE. PT ABLE TO TELL ME HER NAME AND MONTH AND DAY BUT HAS YEAR CONFUSED. SHE HAS LUCID PERIODS WHERE SHE CAN TELL SHE'S IN THE HOSPITAL BUT NOT WHERE. PT HAS BEEN HAVING AUDITORY AND VISUAL HALLUCINATIONS THROUGHOUT THE SHIFT. PT IS COOPERATIVE WITH CARE AND FOLLOWING DIRECTIONS. SHE HAS A RECTAL TUBE AND ROSSI IN PLACE AND PATENT. ROSSI WITH DARK YELLOW URINE AND SEDIMENT. PT ABLE TO MAKE EYE CONTACT AND ATTEMPTS TO ASSIST WITH ORAL CARE BUT SHOWROOM SALES CONSULTANT STRENGTH IS VERY WEAK. OGDEN BOOTS PLACED ON PT BILATERAL FEET TO ASSIST WITH FOOT DROP. SHE IS TURNED Q2H. PT ON 2L BY NC AND SATTING MID 90S. SHE HAS BEEN SINUS RHYTHM ON TELE WITH A LOW-GRADE FEVER. PT VERY TALKATIVE BUT HAS BEEN DISCUSSING WITH HER CHILDREN WHO ARE NOT IN THE ROOM. PT HAS BEEN COOLING WITH ICE PACKS AND A FAN IN HER ROOM.
--- NOTE | 2022-05-14 07:46 | NUR ---
ASSUMED CARE PT ALERT THIS MORNING AND CONVERSING WITH CONVERSATION. STILL HAVING ACTIVE HALLUCINATIONS, SEEING "BABIES" IN THE ROOM. COOPERATIVE WITH CARE. PT. REPOSITIONED THIS AM. ICE PACKS REMOVED. PT. DENIES PAIN THIS AM. REMAINS ON 4L HUMIDIFIED NC. ORAL CARE COMPLETED. PT. CONTINUES TO BE NPO. CENTRAL LINE IN PLACE TO NJJ. PT. REPOSITIONED IN BED FOR COMFORT. VSS. ALL NEEDS MET AT THIS TIME.
[2022-05-14 10:46] LABS: Percent Saturation 21.7 % (15.0-50.0)
--- NOTE | 2022-05-14 18:23 | NUR ---
SHIFT SUMMARY PT. REMAINS ALERT T/O SHIFT. CONVERSING T/O THE DAY HOWEVER STILL HAVING MOMENTS OF CONFUSION AND VISUAL AND AUDIBLE HALLUCINATIONS. PT. BEDSIDE SWALLOW EVAL DONE TODAY AND PT TOLERATED ASSISTANCE WITH THICKEND LIQUIDS AND PUREE DIET ORDERED. PT. DENIES PAIN T/O SHIFT. ROSSI AND RECTAL TUBE DCD THIS SHIFT. PUREWICK IN PLACE. CENTRAL LINE DCD TODAY WELL SITE REMAINS WNL. POWERGLIDE TO UPPER ARM SALINE LOCKED. VSS REPORT TO ONCOMING RN.
--- NOTE | 2022-05-15 05:09 | NUR ---
SHIFT SUMMARY PT REMAINED ALERT TO SELF THOUGHOUT SHIFT, COMMUNICATING AND COOPERATIVE WITH CARE. MOMENTS OF CONFUSION AND VISUAL AND AUDIBLE HALLUCINATIONS. SpO2> 92% 3L VIA NC, DENIES SOB. BP ELEVATED, SBP 160-170's NOTIFIED PHYSICIAN, ORDERS PLACED. PT REMAINED MEDICAL STATUS NO TELE. DENIES CP/PRESSURE. PT INCONTINENT, PUREWICK IN PLACE. CENTRAL LINE DC'd 05/14, SITE REMAINS WNL. POWERGLIDE TO UPPER ARM SALINE LOCKED, DOES NOT DRAW. ORAL CARE PROVIDED WITH SUCTION THROUGHOUT SHIFT. NO OTHER EVENTS, WILL REPORT TO ONCOMING RN.
--- NOTE | 2022-05-15 10:18 | NUR ---
AM NOTE: PATIENT ALERT TO SELF TELLING ME HER NAME AND BIRTHDAY. VERY CONFUSED AND HAVING VISUAL AND AUDITORY HALLUCINATIONS. RIGHT PUPIL OBLONG, EYELIDS DROOPY. FOLLOWING SIMPLE COMMANDS. EASILY DISTRACTED. BEDREST AT THIS TIME. Q2 TURNING, BED ALARM IN PLACE. ON 3L NASAL CANNULA SATING MID 90'S. LUNGS SOUNDING DIM. MEDICAL STATUS NO TELE. BP STABLE. PPP. EDEMA NOTED TO BLE AND BUE. OGDEN BOOTS IN PLACE. HR 90'S. DENIES ABDOMINAL PAIN/NAUSEA. SPEECH THERAPY IN THIS AM, DIET ADVANCED. EATING SMALL AMOUNTS. ATTENDS IN PLACE. INTERMIT USE OF PUREWICK. SKIN OVERALL RAQUEL AND WARM. SCATTERED SCABS/BRUISING. RIGHT IJ SITE WNL. Q4 ORAL CARE. Q6 BLOOD SUGARS. BED ALARM IN PLACE. WILL CONTINUE TO MONITOR.
--- NOTE | 2022-05-15 16:44 | NUR ---
NO ACUTE CHANGES, SEE PREVIOUS NOTE. BED BATH GIVEN THIS SHIFT. REPORTED OFF TO MEDICAL NURSE. PATIENT TAKEN TO MEDICAL FLOOR ROOM 354 WITH ALL PERSONAL BELONGINGS.
--- NOTE | 2022-05-15 17:15 | NUR ---
NOTES: PATIENT TRANSFERRED FROM PCU RM 8 TO MEDICAL FLOOR c NO TELE. PATIENT ARRIVED TO ROOM AT AROUND 1645 VIA BED. PATIENT ON O2 3L VIA NC c SPO2 OF 97%. LUNGS COARSE/DIM T/O TO AUSCULTATION. NOTED TO HAVE CLEAR DRESSING TO R SIDE OF NECK FROM IJ WAS DC'D YESTERDAY PER RN. PLUS 1 EDEMA TO BUE, PLUS 2 EDEMA TO LOWER ABDOMEN, THIGH, AND BLE. MIPELEX DRESSING TO COCCYX. BRUISING SCATTERED T/O. BLISTER RLQ OF ABDOMEN. SCRATCHES ARNAUD ON BOTTOM AND UPPER THIGHS. ATTENDS AND PUREWICK SYSTEM INPLACE FOR INCOTINENCE VOID. PATIENT ALERT AND ORIENTED TO SELF. CALM, PLEASANT AND COOPERATIVE c CARE. VITAL SIGNS REVIEWED. IV TO LILIBETH SALINE LOCKED AND NO BLOOD RETURN. BLE BOOTS INPLACE. BED ALARM ON FOR SAFETY. CALL LIGHT IN REACH.
--- NOTE | 2022-05-16 04:18 | NUR ---
SUMMARY: PT A/O TO SELF AND IS APPROPRIATELY SPECIFYING NEEDS BUT IS CONFUSED TO TIME, SURROUNDINGS AND SITUATION. NO S/S HALLUCINATION THIS SHIFT AND SHE SEEMS TO BE GAINING STRENGTH AND MENTAL CLARITY. PT WAS ABLE TO LIFT DRINK AND SIP FROM STRAW INDEPENDENTLY. SHE'S TOLERATING PILLS WHOLE IN APPLESAUCED BUT LIQUID TYLENOL CAUSED DRY RECHING W/O EMESIS. ONLY 325MG RECIEVED BUT WAS EFFECTIVE AND RELIEVING ALLOVER PAIN. PT WAS ALSO MEDICATED W/ZOFRAN FOR TOLERABLE RELIEF OF NAUSEA. SHE HAS SCATTERED BRUISES, A BLISTER TO HER RLQ AND SCRATCH CARLOS TO BOTTOM AND UPPER THIGHS. MEPILEX TO COCCYX REMAINS C/D/I. Q2H TURN SCHEDULE MAINTAINED AND PURE WIC CATH IS IN PLACE FOR INCONTINENCE. 1+ EDEMA NOTED TO BUE'S AND 2+ EDEMA PERSISTS TO LOWER ABDO, THIGHS AND BLE'S W/AIR BOOTS IN PLACE TO LEGS. SHE REMAINS ON 3L O2 W/SPO2 WNL AND HAS COARSE LS W/DIMINISHED BASES. NO ACUTE CHANGES, VSS BUT SHE'S SLIGHTLY HYPERTENSIVE THIS SHIFT W/DBP LOW 100'S. WILL DISCUSS W/MD AND REPORT TO DAY RN.
[2022-05-16 05:29] LABS: BASOPHILS ABSOLUTE AUTO 0.03 K/mm3 (0.00-0.23); BASOPHILS PERCENT AUTO 0 % (0-2); EOSINOPHILS ABSOLUTE AUTO 0.39 K/mm3 (0.00-0.68); EOSINOPHILS PERCENT AUTO 3 % (0-6); Hematocrit 28.5 % (33.0-51.0); Hemoglobin 9.1 g/dL (11.5-16.0); IMMATURE GRAN ABSOLUTE AUTO 0.21 K/mm3 (0.00-0.10); IMMATURE GRAN PERCENT AUTO 1 % (0-1); LYMPHOCYTES ABSOLUTE AUTO 2.21 K/mm3 (0.84-5.20); LYMPHOCYTES PERCENT AUTO 15 % (21-46); MONOCYTES ABSOLUTE AUTO 0.94 K/mm3 (0.16-1.47); MONOCYTES PERCENT AUTO 6 % (4-13); Mean Corpuscular HGB 29.7 pg (26.0-34.0); Mean Corpuscular HGB Conc 31.9 g/dL (31.5-36.5); Mean Corpuscular Volume 93 fL (80-100); Mean Platelet Volume 10.6 fL (9.1-12.4); NEUTROPHILS PERCENT AUTO 75 % (41-73); Platelet Count 380 K/mm3 (150-400); RDW Coefficient Variation 18.7 % (11.7-14.2); Red Blood Cell Count 3.06 M/mm3 (3.80-5.20); White Blood Cell Count 14.98 K/mm3 (4.00-11.30)
[2022-05-16 05:39] LABS: Base Excess Venous 7.2 mmol/L; Bicarbonate Venous 30.6 mmol/L (24.0-30.0); PCO2 Venous 38.8 mmHg (38-42)
[2022-05-16] MEDS ORDERED: TOPROL XL50 M1 PO (05:52)
[2022-05-16 05:55] LABS: Bun/Creatinine Ratio 24.5 (12.0-20.0); Calcium, Blood 8.4 mg/dL (8.5-10.1); Creatinine, Blood 0.53 mg/dL (0.40-1.00); Potassium, Blood 2.5 mmol/L (3.5-5.5)
[2022-05-16] MEDS ORDERED: DRON2.5 PO (05:57)
[2022-05-16] MEDS ORDERED: EUTHYROX50 MCG PO (05:57)
[2022-05-16] MEDS ORDERED: MAGNESIUM OXID500 MG PO (05:58)
[2022-05-16] MEDS ORDERED: SENN187 PO (05:58)
[2022-05-16] MEDS ORDERED: MIDO5 PO (05:58)
[2022-05-16] MEDS ORDERED: ONDA4ODT MM (05:59)
[2022-05-16] MEDS ORDERED: PRED FORTE5 ML RIGHTEYE (06:00)
[2022-05-16] MEDS ORDERED: CODACE30 PO (06:00)
--- NOTE | 2022-05-16 06:33 | NUR ---
DISCUSSED HYPERTENSION W/. NEW ORDER RECIEVED FOR PRN HYDRALAZINE AND SCHEDULED NORVASC. HE ALSO CHANGED HER PRN TYLENOL TO TABLET FORM VS ELIXIR D/T LIQUID CAUSING DRY HEAVES/GAGGING. HYDRALAZINE WAS RECIEVED FOR SBP>160, AWAITING EFFECT.
--- NOTE | 2022-05-16 18:40 | NUR ---
SHIFT SUMMARY: PATIENT ALERT TO SELF ONLY, CONFUSED. PER PATIENT SHE IS IN [place], IT'S FEBRUARY 20, 2024. THIS RN REORIENTATED PATIENT TO PLACE, DATE, DAY, AND YEAR. NO VISUAL/AUDITORY HALLUCINATION NOTED TODAY. PATIENT WAS WIDE AWAKE EARLIER THIS AM, THEN AFTER AFTER BREAKFAST BECOME VERY SLEEPY AND WOKE UP AROUND 1500. OT WAS NOT ABLE TO PERFORM COG EVAL c PATIENT TODAY D/T VERY SLEEPY. PER OT THEY WILL TRY AGAIN TOMORROW WHEN PATIENT IS AWAKE TO PARTICIPATE. PATIENT K LAB RESULT THIS AM WAS 2.5. RECEIVED 60 MEQ OF PO POTASSIUM. CALLED DR. REBOLLEDO REGARDING THE K. NO NEW ORDER RECEIVED. PATIENT DENIES CP/PRESSURE. PATIENT HAD XLARGE BROWN, UNFORMED BM THIS SHIFT. MIPELEX DRESSING CHANGED TO COCCYX. Q2 TURN AND ORAL CARE T/O SHIFT. POWERGLIDE TO LILIBETH SALINE LOCKED. BED ALARM ON FOR SAFETY. CALL LIGHT IN REACH.
--- NOTE | 2022-05-17 03:28 | NUR ---
SUMMARY: PT ORIENTED TO SELF ONLY AND SPECIFIES NEEDS WHEN STAFF IN ROOM BUT WAS MORE DROWSY TONIGHT. SHE TOLERATES PILLS WHOLE APPLESAUCE AND WAS GIVEN TYLENOL PRN FOR GENERALIZED PAIN. TURN SCHEDULE MAINTAINED, AIR BOOTS IN PLACE AND EXT'S ELEVATED ON PILLOWS. PUREWIC CATH REMAINS IN PLACE FOR BEDREST AND URINARY INCONTINENCE. MEPILEX IS C/D/I TO COCCYX. 2+ EDEMA PERSISTS TO ABDO, THIGHS AND BLE'S W/1+ NOTED TO BUE'S. SHE HAS SCATTERED SCABS AND SCRATCHES W/ HEALING BLISTER TO RLQ OF ABDO. PG TO LILIBETH IS SL'D. PT CONT'S TO HAVE SCATTERED COARSE LS AND REMAINS ON 3L O2 VIA NC. NO ACUTE CHANGES, VSS/AFEBRILE AND BP IMPROVED W/ADDITION OF NORVASC, NO PRN HYDRALAZINE REQ'D. COG EVAL PLANNED FOR TODAY GIVEN PT IS MORE WAKEFUL TO PARTICIPATE. WCTM AND REPORT TO DAY RN.
[2022-05-17 05:23] LABS: Bun/Creatinine Ratio 21.5 (12.0-20.0); Calcium, Blood 8.3 mg/dL (8.5-10.1); Creatinine, Blood 0.42 mg/dL (0.40-1.00)
--- NOTE | 2022-05-17 19:30 | NUR ---
PT ALERT NO S/S OF ACUTE DISTRESS. SAFETY MEASURES IN PLACE. REPORT GIVEN TO ON COMING NURSE.
--- NOTE | 2022-05-18 07:58 | NUR ---
DANIEL WAS ABLE TO SIT UP IN CHAIR AND EAT 50% OF HER DINNER BEFORE GOING TO BED VIA THE PATIENT LIFT. SHE IS ABLE TO TELL ME WHAT HAPPENED TO HER, BUT EXPLAINS THAT IT IS ONLY BECAUSE IT HAS BEEN EXPLAINED TO HER BY HER DAUGHTER. SHE STATES SHE HAS NO RECOLLECTION OF THE MAJORITY OF HER HOSPITAL STAY. SHE HAD NO COMPLAINTS OF PAIN OR DISCOMFORT OVERNIGHT.
[2022-05-18 09:11] LABS: Bun/Creatinine Ratio 17.4 (12.0-20.0); Calcium, Blood 8.7 mg/dL (8.5-10.1); Creatinine, Blood 0.46 mg/dL (0.40-1.00); Potassium, Blood 3.5 mmol/L (3.5-5.5)
--- NOTE | 2022-05-18 11:39 | NUR ---
Pt sitting up in chair this am, a/ox3, cooperative with care, follows commands well, denies pain, but moans when left undisturbed, can't say why, she was able to take po meds with yogurt, is forgetful, she is on r/a at this time, sats are 99%, no cough noted, hrr, does have 2+edema noted to b/l le, ppp faint, cap refill <3 sec, vs stable, afebrile, iv site is power glide to joshua, site is clear and patent, btx4, abd flat soft nontender, voids without diff, purwick in place, skin c/w/d, very weak, is a lift to transfer, alea, call light in reach.
--- NOTE | 2022-05-18 18:20 | NUR ---
pt was more clear this afternoon, still forgetful and thought is was breakfast time this evening, gave zofran for nausea once, no further changes this shift, call light in reach.
[2022-05-19 06:14] LABS: Bun/Creatinine Ratio 20.8 (12.0-20.0); Creatinine, Blood 0.43 mg/dL (0.40-1.00); Potassium, Blood 3.1 mmol/L (3.5-5.5)
--- NOTE | 2022-05-19 07:58 | NUR ---
DANIEL IS PLEASANT AND COOPERATIVE IN CARE. SHE COMPLAINED OF PAIN IN HER RIGHT LEG BEFORE BEDTIME AWELL NAUSEA. IV ZOFRAN WAS GIVEN WITH TYLENOL WITH GOOD RESULT. IT WAS NOTED THAT HER RIGHT LEG AND FOOT IS CONSIDERABLY LARGER THAT HER LEFT. NO FURTHER COMPLAINTS OF PAIN OR NAUSEA. SHE DID GET A LITTLE TEARFUL AGAIN ABOUT MISSING HER [place] HER DAUGHTER AND THEIR DOG
--- NOTE | 2022-05-19 09:00 | NUR ---
PT PLEASKIANA MA A/O X3, TALKED ABOUT HER OOG. TERRIER. EXPLAINED IS FINE TO BRING IN DOG. H/R REG, NO MURMUR NOTED. NO TELE. LUNGS CLEAR, RESP EASY, UNLABORED. ON R.A. BT X4 LAST BM NOT RECALLED BY PT. VOIDS PUREWICK DRAINING TO LOW SUCTION. COLLECTING IN CONTAINER ON WALL. LIFT PT TO GET UP. VERY WEAK OVERALL. BED IN LOW POSITION, CALL LITE IN REACH, CALLS APPROP
--- NOTE | 2022-05-19 16:03 | NUR ---
"Spiritual Care | Pt. Request Pt. is sitting up in bed and welcomes my visit. Pt. is pleasant and displays evidence of remarkable progress since earlier visits. Pt. is unsettled about the potential of falling again. Through theraputic listening and a calming presence the Pt. displays a hopeful demeanor. Facilitated a life review and established rapport. Prayed with Pt. Pt. verbalized gratitude for the spiritual care visit."
--- NOTE | 2022-05-19 18:09 | NUR ---
PT QUITE PLEASANT TODAY. DID WANT SOME SNACKS THIS AFT. GIVEN. DID WORK WITH PT/OT TODAY. EXTRA K+ GIVEN THIS AM FOR 3.1. DR CASAREZAYED ALL 60 MG THIS AM. NO NEW CHANGES OVERALL TODAY . BED IN LOW POSITION, CALL LITE IN REACH. CALLS APPROP
--- NOTE | 2022-05-20 06:02 | NUR ---
ASSOCIATE PROFESSOR OF HISTORY SUMMARY PT A/OX2; PLEASANT AND COOPERATIVE. PT MOOD CHANGES FROM UPBEAT TO EMOTIONAL FREQUENTLY. EPISODES OF CRYING THAT HER LET HURT AND CALLING OUT "I WANT MY MOMMY"; PT REFUSED TYLENOL FOR HER LEG AND SLEPT WELL T/O THE NIGHT. PUREWICK IN PLACE. PT C/O NAUSEA; ZOFRAN MED 2X WITH GOOD RESULT. POWER GLIDE TO RIGHT UPPER ARM PATENT AND DRAWS. PT HAS NOT USED CALL LIGHT TO REACH STAFF; PT WILL WAIT FOR ROUNDING T/ASK FOR NEEDS TO BE MET. CALL LIGHT ACCESSIBLE. BED LOCKED/LOW.
[2022-05-20 06:19] LABS: Calcium, Blood 8.9 mg/dL (8.5-10.1); Creatinine, Blood 0.47 mg/dL (0.40-1.00); Potassium, Blood 3.4 mmol/L (3.5-5.5)
--- NOTE | 2022-05-20 16:41 | NUR ---
SHIFT SUMMARY PATIENT IS ALERT AND ORIENTED X2. PATIENT HAS HAD NO ACUTE EVENTS THIS SHIFT. VITAL SIGNS REVIEWED. PATIENT HAS STATED THAT SHE IS DEPRESSED AND WANTS TO GO HOME TO BE WITH FAMILY. PATIENT IS LONELY AND THIS RN CALLED FAMILY FOR PATIENT TO CONVERSE WITH ON THE PHONE. PATIENT HAS NOT COMPLAINED OF PAIN, NAUSEA, SOB OR VOMITTING. BED IN LOCKED AND LOWEST POSITION. CALL LIGHT IN PLACE. WILL MONITOR UNTIL SHIFT CHANGE.
[2022-05-21 06:16] LABS: Creatinine, Blood 0.46 mg/dL (0.40-1.00); Magnesium, Blood 1.9 mg/dL (1.6-2.4); Potassium, Blood 3.2 mmol/L (3.5-5.5)
--- NOTE | 2022-05-21 06:22 | NUR ---
Shift Summary PT c/o nausea t/o the night. Refused PM meds, and refused Zofran at that time when offered. Later in the night accepted PRN Zofran which helped a little, also gave PRN Reglan 1 hour later which helped a little more but pt still c/o nausea this AM. Pt AOx3, some confusion at times. Pt bed bound d/t weakness and incontinent. Q2 turns, purewick in place, attends changed as needed. No c/o pain, no emesis despite constant nausea. VSS, pt slept on and off waking up d/t nausea.
--- NOTE | 2022-05-21 15:10 | NUR ---
LAST DOCUMENTED BM WAS 05/16/22. PT DECLINED OFFERED BOWEL MEDS, WANTS TO "GIVE IT A COUPLE MORE DAYS." WILL CONITNUE TO MONITOR.
--- NOTE | 2022-05-21 18:33 | NUR ---
SHIFT SUMMARY: NO ACUTE EVENTS. DENIED PAIN AND NAUSEA. POTASSIUM REPLACED. BOWEL MEDS OFFERED AND DECLINED. GOOD PO INTAKE. IN GOOD SPIRITS. IS HOPING FOR D/C TO SNF IN THE NEXT FEW DAYS.
--- NOTE | 2022-05-21 19:16 | NUR ---
Sent volunteer to see pt no family. repots therputic visit.
[2022-05-22 05:28] LABS: Bun/Creatinine Ratio 24.3 (12.0-20.0); Calcium, Blood 9.8 mg/dL (8.5-10.1); Creatinine, Blood 0.49 mg/dL (0.40-1.00); Potassium, Blood 3.4 mmol/L (3.5-5.5)
--- NOTE | 2022-05-22 08:11 | NUR ---
STRIPPER AND TAPER SUMMARY PT A/OX2-3. PLEASANT; PERIODS OF CRYING/EMOTIONAL; STATING SHE WANTS TO GO HOME. OFFERED STOOL SOFTNERS WITH PM MEDS; PT REFUSED. EDUCATED PT ON COMPLICATIONS OF CONSTIPATION; ENCOURAGED PT TO TAKE MEDS; PT CONT TO REFUSE. NO BM DOCUMENTED SINCE 05/16/22. PT PO INTAKE REMAINS GOOD; PUREWICK IN PLACE; URINE CLEAR/YELLOWS. NO COMPLAINTT OS NAUSEA OR PAIN T/O SHIFT. CALL LIGHT ACCESSIBLE. BED LOCKED/LOW.
--- NOTE | 2022-05-22 12:08 | NUR ---
GAVE PT PRN DOCUSATE AT 1205. PT AGREES THAT SHE WILL TAKE A SUPPOSITORY IF MED IS NOT EFFECTIVE.
--- NOTE | 2022-05-22 17:56 | NUR ---
SHIFT SUMMARY: PT A&O X3-4. PT HAS BEEN PLEASANT THROUGHOUT THE SHIFT. RECEIVED SEVERAL BACK AND FORTH COMMENTS ABOUT THE DECISION OF PT D/C TO SNF OR HOME. CALLED THE DAUGHTER WHO WANTED AN UPDATE ON PT AND STATED THAT SHE IS ABLE TO CARE FOR HER AT HOME. EXPLAINED TO DAUGHTER THE BARRIERS OF HOME VS SNF. TATTOO DESIGNER AWARE OF SITUATION. PT STILL HAS NOT HAD BM SINCE 05/16. PT AGREED TO TAKE PRN DOCUSATE GIVEN AT 1204 WHERE AT THIS TIME SHE STATED SHE WOULD HAVE SUPPOSITORY IF DOCUSATE DID NOT WORK. WHEN ASKED AT 1700, PT REFUSED SUPPOSITORY. PT ABLE TO TAKE MORNING MEDS OKAY BUT WOULD NOT SWALLOW 1700 POTASSIUM. CUT IN HALF AND PLACED IN APPLESAUCE WHICH EVENTUALLY WORKED. PT HAS SMALL SORE ON R. BREAST. REPLACED MEPILEX WITH SMALLER PADDED BANDAGE. PUREWICK IN PLACE. NO IV ACCESS ORDERED DUE TO POWERGLIDE COMING OUT. NAUSEA MEDS CHANGED TO PO. BED IN LOWEST POSITION. CALL LIGHT AND PHONE IN REACH. WILL CONTINUE TO MONITOR.
--- NOTE | 2022-05-23 04:22 | NUR ---
SCRAP HOIST OPERATOR SUMMARY A&OX3. PATIENT EFFECTIVELY COMMUNICATES NEEDS, BUT DOES TEND TO HAVE FREQUENT EPISODES OF TEARFULNESS. THERAPEUTIC COMMUNICATION PROVIDED. NO ACUTE EVENTS THROUGHOUT THE NIGHT. VSS. PURWICK IN PLACE AND DRAINING. PATIENT PRODUCED LARGE BOWEL MOVEMENT TOWARD THE BEGINNING OF THIS SHIFT. BED LOW AND LOCKED. CALL LIGHT WITHIN REACH. THIS RN WILL CONTINUE TO CLOSELY MONITOR.
[2022-05-23 05:53] LABS: Bun/Creatinine Ratio 30.5 (12.0-20.0); Creatinine, Blood 0.59 mg/dL (0.40-1.00); Potassium, Blood 3.9 mmol/L (3.5-5.5)
--- NOTE | 2022-05-23 15:20 | NUR ---
SHIFT SUMMARY PT RESTING QUIETLY DURING SHIFT REPORT, BUT WOKE EASILY. NO C/O. PT ADMITTED FOR TOXIC METABOLIC ENCEPHALOPATHY, STILL HAVING SOME CONFUSION AND FORGETFULNESS. PT UNABLE TO USE PHONE TO CALL DAUGHTER; ASSISTANCE GIVEN. PT ABLE TO GET UP TO EOB WITH THERAPY, JUST BEFORE LUNCH. PT ABLE TO FEED HERSELF AND DECLINED ASSISTANCE FROM UNIX SYSTEM ADMINISTRATOR AND LATER FROM RN. A FEW MINUTES LATER, PT UPSET THAT NO ONE HAD COME IN TO HELP HER EAT. PT DID NOT REMEMBER HOW SHE GOT HER LUNCH OR THAT DIFFERENT STAFF HAD COME IN TO CK ON HER DURING LUNCH. PT INCONTINENT OF BOWELS WHEN FINISHED WITH LUNCH. PT CLEANED AND CHANGED. REPOSITIONED FOR COMFORT. DENIED FURTHER NEEDS AT THIS TIME. CALL LT IN REACH.
--- NOTE | 2022-05-24 03:20 | NUR ---
MANAGER LOCATION SUMMARY NO ACUTE EVENTS THROUGHOUT THE NIGHT. A&OX3. PATIENT EFFECTIVELY COMMUNICATES NEEDS. VSS. RR EVEN AND UNLABORED ON RA. PURWICK IN PLACE AND DRAINING. PATIENT OBSERVED TO BE SLEEPING COMFORTABLY. NO REPORTED ISSUES. BED LOW AND LOCKED. CALL LIGHT WITHIN REACH. THIS RN WILL CONTINUE TO MONITOR.
[2022-05-24 06:07] LABS: Bun/Creatinine Ratio 34.1 (12.0-20.0); Calcium, Blood 10.3 mg/dL (8.5-10.1); Creatinine, Blood 0.41 mg/dL (0.40-1.00); Potassium, Blood 3.3 mmol/L (3.5-5.5)
--- NOTE | 2022-05-24 17:23 | NUR ---
SHIFT SUMMARY PT A&OX4, MOOD UP AND DOWN T/O SHIFT. PT C/O BEING DEPRESSED DUE TO NOT BEING ABLE TO GET UP, PLANS TO DO BED EXERSIZE TO INCREASE STRENGTH/MOBILITY. TOLERATING PO INTAKE WELL. CALL LIGHT W/ IN REACH. INCONT. BRIEF IN PLACE.
--- NOTE | 2022-05-25 03:39 | NUR ---
DENTAL DETAIL REPRESENTATIVE SUMMARY NO ACUTE EVENTS THROUGHOUT THE NIGHT. A&OX3. PATIENT EFFECITVELY COMMUNICATES NEEDS. INTERMITTENT TEARFULNESS. THERAPEUTIC COMMUNICATION AND LISTENING PROVIDED. VSS. RR EVEN AND UNLABORED ON RA. BED LOW AND LOCKED. CALL LIGHT WITHIN REACH. CONTINUED MONITORING.
[2022-05-25 05:36] LABS: Bun/Creatinine Ratio 31.3 (12.0-20.0); Calcium, Blood 9.9 mg/dL (8.5-10.1); Creatinine, Blood 0.54 mg/dL (0.40-1.00); Potassium, Blood 3.4 mmol/L (3.5-5.5)
--- NOTE | 2022-05-25 19:24 | NUR ---
SHIFT SUMMARY PTN AWAITING PLACEMENT TO A SNF FOR REHAB. SHE REPORTS THAT SHE BROKE OR SPRAINED HER RIGHT FOOT AND CANNOT WALK ON IT. PTN LIFT PTN, WAS UP TO CHAIR FOR BREAKFAST, BUT STAYED IN BED REST OF DAY. PTN IS ENCOURAGED TO GET UP TO CHAIR PER PT. PTN DID HAVE SOME NAUSEA THIS SHIFT AND WAS MEDICATED PER EMAR. PTN DOES HAVE SOME CONFUSION, BUT IS ALERT AND ORIENTED TO PLACE AND SITUATION. TALKS WITH DAUGHTER ON PHONE. SAYS SHE IS FROM THE [facility]. CONTINUE TO MONITOR.
--- NOTE | 2022-05-26 04:02 | NUR ---
ALERT AND ORIENTED X3 W/ CONFUSION, CRIES AND EXPRESSES THAT SHE IS DEPRESSED D/T NOT BEING ABLE TO SEE CHILDREN, TOTAL CARE, TURN Q2, ROOM AIR, NO TELE, MEDS WHOLE WITH WATER, INCONTINENT, BM 2/3, REGULAR DIET, NO IV ACCESS. NO EVENTS OVERNIGHT
[2022-05-26 05:50] LABS: Bun/Creatinine Ratio 31.7 (12.0-20.0); Calcium, Blood 9.9 mg/dL (8.5-10.1); Creatinine, Blood 0.5 mg/dL (0.40-1.00); Potassium, Blood 3.9 mmol/L (3.5-5.5); Thyroid Stimulating Hormone 3.98 uIU/mL (0.360-4.800)
--- NOTE | 2022-05-26 17:10 | NUR ---
SHIFT SUMMARY PTN CONTINUED BED REST FOR MOST OF DAY, UP TO CHAIR FOR LUNCH. PT AND OT BOTH WORKED WITH PTN TODAY. PTN SOME RELUCTANCE, BUT COOPERATIVE. X-RAY TAKEN OF PTN RT FOOT FOR EVAL. PUREWICK REMOVED FOR MOBILIZATION WITH PT AND OT, REPLACED AFTER. PTN C/O SORENESS TO BUTTOCKS, BARRIER CREAM APPLIED, ENCOURAGED TO REPOSITION NECESSARY, TO INCLUDE SHIFTING WITH PILLOWS. PUREWICK REPLACED AND WORKING WELL. PTN REPORT OF DEPRESSION AND NOTED ATTENTION AND TEARS BY NIGHT NURSE. DR GAMEZ MADE AWARE AND WROTE FOR AN ANTIDEPRESSENT, BUT PTN NOT INTERESTED AT THIS TIME. PTN ALSO REPORTED SOME NAUSEA THIS AFTERNOON, BUT WAS NOT INTERESTED IN MEDICATION FOR THIS. INSTEAD SHE TRIED SOME CRACKERS. CONTINUE TO MONITOR AND AWAIT PLACEMENT TO A SNF.
[2022-05-27 05:01] LABS: Bun/Creatinine Ratio 34.3 (12.0-20.0); Calcium, Blood 10.1 mg/dL (8.5-10.1); Creatinine, Blood 0.41 mg/dL (0.40-1.00); Potassium, Blood 3.8 mmol/L (3.5-5.5)
--- NOTE | 2022-05-27 05:52 | NUR ---
PATIENT ALERT AND ORIENTED, VERY PLEASANT AND HAD A FEW LAUGHS THROUGHOUT SHIFT, PATIENT WANTS PUREWICK DUE TO INCONTINENCE, NO EVENTS OVERNIGHT
--- NOTE | 2022-05-27 13:40 | NUR ---
NOTE PT ALERT. USING CALL LIGHT FREQUNELTY. C/O THAT HER "BUTT" HURTS. ATTEMPTED HELPING HER REPOSITON WITH PILLOWS. THAT DIDN'T HELP. PLACED AN EGG CRATE FOR COMFORT. HER SKIN IS INTACT. NO REDNESS, SWELLING OR BREAK DOWN NOTED. PLACED HER OGDEN BOOTS FOR FOOT DROP PROTECTION. SHE AGREED TO WEAR FOR SEVERAL HOURS. CONTINUE POC.
--- NOTE | 2022-05-27 15:29 | NUR ---
SHIFT NOTE PT TEARFUL WHEN ASKED TO MOVE HERSELF. SHE CAN ROLL WITHOUT ASSIST. SHE COMPLAINS OFTEN OF HER RECTUM BURNING. SHE REALLY LIKES THE PINK BARRIER CREAM. 1 LARGE FORMED BM. SHE IS UNAWARE OF HAVING STOOL. PERIWICK IN PLACE. SHE VOIDS A LARGE AMOUNT. PT CURRENTLY TALKING ON THE PHONE WITH HER DAUGHTER, ARMAND. OGDEN BOOTS ON BOTH FEET. SHE'S UPSET THAT SHE NEEDS TO WEAR THEM. THEY ARE HEAVY. EGG CRATE PLACED ONHER BED FOR COMFORT. CONTINUE POC.
--- NOTE | 2022-05-28 05:37 | NUR ---
PATIENT ALERT AND ORIENTED, ROOM AIR, PT STATES SHE WANTS PUREWICK AND DOES NOT WANT TO GET OUT OF BED, PUREWICK CHANGED AT 0500, 2/5 BM. NO EVENTS OVERNIGHT
--- NOTE | 2022-05-28 12:17 | NUR ---
NURSE NOTE PATIENT TRANSFERRED FROM [facility] AT 1200. RONALD CHEN PROVIDED REPORT. PATIENT SETTLED AND ORIENTED TO ROOM. PATIENT WAS BROUGHT LUNCH FROM PCU. PATIENT WAS RESTARTED ON FLUIDS 100/HR. PATIENT DENIES ADDITIONAL NEEDS AT THIS TIME.
--- NOTE | 2022-05-28 17:32 | NUR ---
SHIFT SUMMARY PATIENT IS ALERT BUT CONFUSED. PATIENT HAS HAD NO ACUTE EVENTS THIS SHIFT. VITAL SIGNS REVIEWED. PATIENT HAS BEEN PLEASENT AND COOPERATIVE WITH CARE THIS SHIFT. PATIENT REMAINS A PLACEMENT ISSUE. PATIENT HAS NO COMPLAINTS OF PAIN, NAUSEA, SOB OR VOMITTING THIS SHIFT. BED IN LOCKED AND LOWEST POSITION. CALL LIGHT IN PLACE. PUREWICK IN PLACE ON REQUEST OF PATIENT. WILL MONITOR UNTIL SHIFT CHANGE.
--- NOTE | 2022-05-29 03:36 | NUR ---
PATIENT ALERT AND ORIENTED AND VERY PLEASANT, ROOM AIR, MAX ASSIST, NO EVENTS OVERNIGHT
[2022-05-29] MEDS ORDERED: AMLO5 PO (12:19)
[2022-05-29] MEDS ORDERED: HYDCOR10 PO ×2 (12:19→12:28)
[2022-05-29] MEDS ORDERED: SERT50 PO (12:28)
[2022-05-29] MEDS ORDERED: SPIR25 PO (12:29)
--- NOTE | 2022-05-29 14:54 | NUR ---
SHIFT SUMMARY PATIENT IS ALERT AND CONFUSED. PATIENT HAS HAD NO ACUTE EVENTS THIS SHIFT. VITAL SIGNS REVIEWED. PATIENT IS BEING DISCHARGED HOME. [facility] IS TRANSPORTING PATIENT HOME. MEDICATIONS FAXED TO PATIENTS PHARMACY OF CHOICE.
== END 2022-05-29 14:33 | disposition home or self-care (01) | DRG 643 ==
LOC: ICUE 10:37 → PCU 16:39 → ICUE 16:39 → MEDS 16:39 → ICUE 04-30 09:29 → PCU 05-03 04:20 → ICUE 05-08 23:32 → PCU 05-10 15:04 → MEDS 05-15 16:25
PROVIDERS: Family Medicine; Internal Medicine; Internal Medicine Critical Care Medicine; ADMIT Internal Medicine
PROC: 0BH17EZ Insertion of Endotracheal Airway into Trachea, Via Natural or Artificial Opening (ICD-10-PCS; principal; 2022-04-20)
PROC: 5A1955Z Respiratory Ventilation, Greater than 96 Consecutive Hours (ICD-10-PCS; 2022-04-20)
PROC: 3E033XZ Introduction of Vasopressor into Peripheral Vein, Percutaneous Approach (ICD-10-PCS; 2022-04-20)
DX: E27.1 Primary adrenocortical insufficiency (principal); G92.8 Other toxic encephalopathy; J18.9 Pneumonia, unspecified organism; J96.01 Acute respiratory failure with hypoxia; R57.8 Other shock; N39.0 Urinary tract infection, site not specified; J90 Pleural effusion, not elsewhere classified; N17.9 Acute kidney failure, unspecified; E87.1 Hypo-osmolality and hyponatremia; C50.912 Malignant neoplasm of unspecified site of left female breast; E87.6 Hypokalemia; E03.9 Hypothyroidism, unspecified; K76.0 Fatty (change of) liver, not elsewhere classified; N18.9 Chronic kidney disease, unspecified; E11.22 Type 2 diabetes mellitus with diabetic chronic kidney disease; D63.1 Anemia in chronic kidney disease; E83.51 Hypocalcemia; F03.90 Unspecified dementia, unspecified severity, without behavioral disturbance, psychotic disturbance, mood disturbance, and anxiety; Z87.440 Personal history of urinary (tract) infections; Z88.0 Allergy status to penicillin; Z88.8 Allergy status to other drugs, medicaments and biological substances; Z91.013 Allergy to seafood
CPT/HCPCS: 36415; 36556; 36569; 36600; 51702; 51703; 70470; 70551; 71045; 71260; 73610; 73630; 74177; 80048; 80053; 80069; 80202; 80400; 81001; 82024; 82140; 82330; 82533; 82607; 82728; 82746; 82803; 82947; 83516; 83520; 83540; 83550; 83605; 83735; 83880; 84100; 84132; 84145; 84436; 84439; 84443; 84481; 85014; 85018; 85025; 85027; 85610; 85651; 86037; 86140; 86225; 86235; 86316; 86430; 87040; 87070; 87086; 87106; 87205; 87493; 92526; 92610; 93005; 93010; 93306; 93970; 93971; 94002; 94003; 94760; 94762; 97110; 97129; 97161; 97164; 97165; 97530; 97535; A9270; C1751; C9113; J0360; J0692; J0834; J1650; J1720; J1815; J1885; J1940; J2060; J2185; J2405; J2704; J2765; J3010; J3370; J3475; J3480; J7030; J7040; J7050; J7060; J7120; P9047; Q9967